=== PATIENT | male | born 1960 ===

== ENCOUNTER 2016-09-28 14:17 | Inpatient (IN) | payer MEDICARE, MEDICAID ==
--- NOTE | 2016-09-28 15:57 | ED PDOC ---
HPI: Male Pain Time Seen by Provider: 09/28/16 15:01 Chief Complaint (Nursing): Male Genitourinary Chief Complaint (Provider): Hematuria History Per: Patient History/Exam Limitations: no limitations Onset/Duration Of Symptoms: Days (8) Current Symptoms Are (Timing): Still Present Additional History Per: Patient Additional Complaint(s): The patient is a 56yo male, presents to the ED for evaluation of hematuria, present for the past 8 days. Of note, patient is on dialysis (MWF) and had his latest dialysis done yesterday. Patient reports associated right sided abdominal pain, present for the past 5 days. He additionally states visiting his substation electrician Dr. Rangel 5 days ago who gave him Bactrim and instructed him to visit the ED if hematuria does not resolve in 3 days. He denies any fever, vomiting, dysuria, chest pain, lightheadedness. Patient offers no additional medical complaints. Past Medical History Reviewed: Historical Data, Nursing Documentation, Vital Signs Vital Signs: Last Vital Signs Temp 97.8 F 09/28/16 14:34 Pulse 78 09/28/16 14:34 Resp 18 09/28/16 14:34 BP 154/80 H 09/28/16 14:34 Pulse Ox 99 09/28/16 14:34 - Medical History PMH: HTN - Family History Family History: States: Unknown Family Hx - Home Medications Home Medications: Ambulatory Orders Medication Instructions Recorded Aspirin [Ecotrin] 81 mg PO DAILY 09/28/16 Cholecalciferol (Vitamin D3) 5,000 unit PO DAILY 09/28/16 [Vitamin D3] Cinacalcet [Sensipar] 30 mg PO DAILY 09/28/16 Febuxostat [Uloric] 40 mg PO DAILY 09/28/16 Folic Acid/Vit B Complex and C 1 tab PO DAILY 09/28/16 [Dee-Valeriano Tablet] Multivitamin/Iron/Folic Acid 1 tab PO DAILY 09/28/16 [Centrum Complete Multivit Tab] Iucjz-8-Oxrg Ethyl Esters 1 GM 1 gm PO BID 09/28/16 [Lovaza] Omeprazole 20 mg PO DAILY 09/28/16 Oxycodone HCl/Acetaminophen 1 tab PO Q4H PRN 09/28/16 [Endocet 5-325 Tablet] Sevelamer Carbonate [Renvela] 800 mg PO TID 09/28/16 Simvastatin [Zocor] 20 mg PO DAILY 09/28/16 Sulfamethoxazole/Trimethoprim 1 tab PO BID 09/28/16 [Bactrim DS Tab] Valsartan [Diovan] 320 mg PO DAILY 09/28/16 traMADol [Ultram] 50 mg PO BID PRN 09/28/16 - Allergies Allergies/Adverse Reactions: Allergies Allergy/AdvReac Type Severity Reaction Status Date / Time No Known Allergies Allergy Verified 10/27/13 11:03 Review of Systems ROS Statement: Except As Marked, All Systems Reviewed And Found Negative Constitutional: Negative for: Fever, Chills Cardiovascular: Negative for: Chest Pain, Light Headedness Gastrointestinal: Positive for: Abdominal Pain. Negative for: Nausea Genitourinary Male: Positive for: Hematuria. Negative for: Dysuria Physical Exam - Reviewed Nursing Documentation Reviewed: Yes Vital Signs Reviewed: Yes - Physical Exam Appears: Positive for: Well, Non-toxic, No Acute Distress Head Exam: Positive for: ATRAUMATIC, NORMAL INSPECTION, NORMOCEPHALIC Skin: Positive for: Normal Color, Warm, DRY Eye Exam: Positive for: Normal appearance Neck: Positive for: Normal, Supple Cardiovascular/Chest: Positive for: Regular Rate, Rhythm Respiratory: Positive for: Normal Breath Sounds. Negative for: Respiratory Distress Gastrointestinal/Abdominal: Positive for: Soft, Tenderness (right sided tenderness). Negative for: Mass, Guarding, Rebound Back: Positive for: Normal Inspection. Negative for: L CVA Tenderness, R CVA Tenderness Extremity: Positive for: Normal ROM, Other (fistula noted in left upper extremity). Negative for: Deformity, Swelling Neurologic/Psych: Positive for: Alert, Oriented. Negative for: Motor/Sensory Deficits - Laboratory Results Result Diagrams: 09/28/16 16:15 09/28/16 16:15 - ECG O2 Sat by Pulse Oximetry: 99 (RA) Pulse Ox Interpretation: Normal Medical Decision Making Medical Decision Making: Time: 1508 Impression: Hematuria, UTI, Pyelonephritis Plan: -- Labs -- CT AP w/o contrast --Reassess Time: 1625 CT AP IMPRESSION: 1. Grossly enlarged cystic kidneys are appreciate implies cystic kidney disease with variable density throughout the kidneys suggest a probable hemorrhagic reported proteinaceous cystic changes occasionally. Lack of contrast limits interpretation. Underlying lesion is not completely excluded. Unremarkable appearing urinary bladder. 2. Occasional appendix cc changes of increases well which are nonspecific but likely represent simple cysts. Lack of contrast limits the interpretation. 3. Potential pulmonary venous congestion/ CHF based on appearance of lung bases as discussed above. Prior bilateral pleural effusions however have resolved. Time: [address] Rangel, patient's substation electrician who advises admission. Case discussed with Dr. Damon who is aware. Case discussed with Dr. Marquez who is aware of admission. Scribe Attestation: Documented by Maite Morgan acting as a scribe for Betty Maynard MD Provider Scribe Attestation: All medical record entries made by the Scribe were at my direction and personally dictated by me. I have reviewed the chart and agree that the record accurately reflects my personal performance of the history, physical exam, medical decision making, and the department course for this patient. I have also personally directed, reviewed, and agree with the discharge instructions and disposition. Disposition - Clinical Impression Clinical Impression: Urinary tract infection, Gross hematuria, Polycystic kidney disease, ESRD (end stage renal disease) - Patient ED Disposition Is Patient to be Admitted: Yes - Disposition Disposition Time: 18:30 Condition: STABLE - Pt Status Changed To: Hospital Disposition Of: Inpatient - Admit Certification Admit to Inpatient:: After my assessment, the patient will require hospitalization for at least two midnights. This is because of the severity of symptoms shown, intensity of services needed, and/or the medical risk in this patient being treated as an outpatient. - POA Present On Arrival: None
--- NOTE | 2016-09-28 16:20 | CT ---
PROCEDURE: CT Abdomen and Pelvis without intravenous contrast HISTORY: R flank pain, hematuria, ESRD COMPARISON: None. TECHNIQUE: Technique. Contrast Dose: 0 cc. Radiation dose: Total exam DLP = 621 mGy-cm. This CT exam was performed using one or more of the following dose reduction techniques: Automated exposure control, adjustment of the mA and/or kV according to patient size, and/or use of iterative reconstruction technique. FINDINGS: LOWER THORAX: Cardiomegaly is again evident, however a prior pleural effusions appear to have resolved. Instead, interlobular septal markings are increased in density and thickness suspicious for potential CHF/pulmonary vascular congestion. . LIVER: Numerous hepatic lucency is again appreciated, some which appear slightly larger in the interval. Lack of contrast limits interpretation. No gross intrahepatic biliary dilatation. GALLBLADDER AND BILE DUCTS: Unremarkable appearing. PANCREAS: Unremarkable. No gross lesion or ductal dilatation. SPLEEN: Unremarkable. ADRENALS: Unremarkable. No mass. KIDNEYS AND URETERS: Grossly enlarged kidneys are again seen due to extensive cystic changes bilaterally with both kidneys appearing somewhat more enlarged than previously shown. The left kidney now extends into the upper left hemipelvis region with both kidneys crowding the local solid and hollow abdominal viscera more so than previously shown. VASCULATURE: Unremarkable. No aortic aneurysm. BOWEL: Unremarkable. No obstruction. No gross mural thickening. APPENDIX: Unremarkable. Normal appendix. PERITONEUM: Unremarkable. No free fluid. No free air. LYMPH NODES: Unremarkable. No enlarged lymph nodes. BLADDER: Unremarkable. REPRODUCTIVE: Unremarkable. BONES: Stable benign hemangioma is appreciate the L4 vertebral body. Question dextroscoliotic lumbar spinal deformity. OTHER FINDINGS: None. IMPRESSION: 1. Grossly enlarged cystic kidneys are appreciate implies cystic kidney disease with variable density throughout the kidneys suggest a probable hemorrhagic reported proteinaceous cystic changes occasionally. Lack of contrast limits interpretation. Underlying lesion is not completely excluded. Unremarkable appearing urinary bladder. 2. Occasional appendix cc changes of increases well which are nonspecific but likely represent simple cysts. Lack of contrast limits the interpretation. 3. Potential pulmonary venous congestion/ CHF based on appearance of lung bases as discussed above. Prior bilateral pleural effusions however have resolved.
[2016-09-28 16:56] LABS: BASO % 0.5 % (0.0-2.0); EOS # 0.2 K/uL (0.0-0.7); EOS % 4.5 % (0.0-4.0); HEMATOCRIT 34.3 % (35.0-51.0); LYMPH # 0.8 K/uL (1.0-4.3); LYMPH % 18.7 % (20.0-40.0); MEAN CELL VOLUME 90.3 fl (80.0-94.0); MEAN CORPUSCULAR HEMOGLOBIN 29.2 pg (27.0-31.0); MEAN CORPUSCULAR HGB CONC 32.4 g/dL (33.0-37.0); MEAN PLATELET VOLUME 8.4 fl (7.2-11.7); MONO # 0.7 K/uL (0.0-0.8); MONO % 15.4 % (0.0-10.0); NEUT # 2.7 K/uL (1.8-7.0); NEUT % 60.9 % (50.0-75.0); NRBC % 0.1 % (0.0-0.0); RED CELL DISTRIBUTION WIDTH 14.7 % (11.5-14.5); WHITE BLOOD COUNT 4.5 K/uL (4.8-10.8)
[2016-09-28 17:02] LABS: RBC URINE 51924 /hpf (0-3); URINE BILIRUBIN NEGATIVE (NEGATIVE); URINE BLOOD MODERATE (NEGATIVE); URINE COLOR RED (YELLOW); URINE GLUCOSE (UA) 50 mg/dL (Normal); URINE KETONE TRACE mg/dL (NEGATIVE); URINE LEUKOCYTE ESTERASE NEG Leu/uL (Negative); URINE PROTEIN 100 mg/dL (NEGATIVE); URINE UROBILINOGEN 0.2-1.0 mg/dL (0.2-1.0)
[2016-09-28 17:02] LABS: ALB/GLOB RATIO 1.2 (1.0-2.1); BILIRUBIN,TOTAL 0.6 mg/dl (0.2-1.3); CALCIUM 9.6 mg/dL (8.4-10.2); POTASSIUM 5.5 MMOL/L (3.6-5.0); TOTAL PROTEIN 7.9 G/DL (6.3-8.2)
[2016-09-28 17:04] LABS: WBC URINE 5 /hpf (0-5)
[2016-09-28 17:07] LABS: VENOUS BLOOD GAS BASE EXCESS 7.5 mmol/L (0.0-2.0); VENOUS BLOOD GAS PCO2 50 mmHg (40-60); VENOUS BLOOD PH 7.43 (7.32-7.43)
[2016-09-28 17:13] LABS: PARTIAL THROMBOPLASTIN TIME 36.5 Seconds (25.6-37.1)
[2016-09-28] MEDS ORDERED: Sod Polystyrene Sulf 15 gm/60 ml Oral Susp PO STA (17:26)
[2016-09-28] MEDS ORDERED: Sod Polystyrene Sulf 15 gm/60 ml Oral Susp ONE (18:00)
[2016-09-28] MEDS ORDERED: Insulin Regular 100 units/ml IV STA (18:15)
[2016-09-28] MEDS ORDERED: Albuterol 0.083% Inhal Sol (2.5 mg/3 mL) UD INH STA (18:15)
[2016-09-28] MEDS ORDERED: Dextrose 50% SYRINGE Inj (50 ml) IVP STA (18:16)
[2016-09-28] MEDS ORDERED: cefTRIAXone (Rocephin) 1 gm Inj ONE (18:40)
[2016-09-28] MEDS ORDERED: Insulin Regular 100 units/ml ONE (18:41)
[2016-09-28] MEDS ORDERED: Albuterol-Ipratrop 3 mg / 0.5 (3 ml) UD ONE (18:41)
[2016-09-28] MEDS ORDERED: Dextrose 50% SYRINGE Inj (50 ml) ONE (18:42)
[2016-09-28] MEDS ORDERED: Oxycodone/Acetaminophen 5/325 mg Tab PO PRN (22:58)
[2016-09-29] MEDS ORDERED: Multivitamin With Minerals Tab PO SCH (09:00)
[2016-09-29 10:46] LABS: RBC URINE 4962 /hpf (0-3); URINE BILIRUBIN NEGATIVE (NEGATIVE); URINE BLOOD LARGE (NEGATIVE); URINE COLOR RED (YELLOW); URINE GLUCOSE (UA) NEG (Normal); URINE KETONE NEGATIVE (NEGATIVE); URINE LEUKOCYTE ESTERASE NEG Leu/uL (Negative); URINE PROTEIN 100 mg/dL (NEGATIVE); URINE UROBILINOGEN 0.2-1.0 mg/dL (0.2-1.0); WBC URINE 521 /hpf (0-5)
[2016-09-29 10:56] LABS: WBC CLUMPS RARE /hpf
[2016-09-29 10:57] LABS: URINE BACTERIA RARE (<OCC)
[2016-09-29] MEDS: Tmp-Smz 800 mg-160 mg DS Tab PO SCH ×2 (10:58→18:32)
--- NOTE | 2016-09-29 13:05 | CP.PCM.CON ---
History of Present Illness - History of Present Illness History of Present Illness: 56yo male, presents to the ED for evaluation of hematuria, present for the past 8 days. Of note, patient is on dialysis (MWF) and had his latest dialysis done yesterday. Patient reports associated right sided abdominal pain, present for the past 5 days. He additionally states visiting his washhouse hand Dr. Rangel 5 days ago who gave him Bactrim and instructed him to visit the ED if hematuria does not resolve in 3 days. He denies any fever, vomiting, dysuria, chest pain, lightheadedness. Patient offers no additional medical complaints. - Medical History PMH: HTN Review of Systems - Constitutional Constitutional: As Per HPI, Fatigue - EENT Eyes: absent: As Per HPI, Blind Spots, Blurred Vision, Change in Vision, Decreased Night Vision, Diplopia, Discharge, Dry Eye, Exophthalmos, Floaters, Irritation, Itchy Eyes, Loss of Peripheral Vision, Pain, Photophobia, Requires Corrective Lenses, Sees Flashes, Spots in Vision, Tunnel Vision, Other Visual Disturbances, Loss of Vision, Other Ears: absent: As Per HPI, Decreased Hearing, Ear Discharge, Ear Pain, Tinnitus, Abnormal Hearing, Disequilibrium, Dizziness, Other Nose/Mouth/Throat: absent: As Per HPI, Epistaxis, Nasal Congestion, Nasal Discharge, Nasal Obstruction, Nasal Trauma, Nose Pain, Post Nasal Drip, Sinus Pain, Sinus Pressure, Bleeding Gums, Change in Voice, Dental Pain, Dry Mouth, Dysphagia, Halitosis, Hoarsness, Lip Swelling, Mouth Lesions, Mouth Pain, Odynophagia, Sore Throat, Throat Swelling, Tongue Swelling, Facial Pain, Neck Pain, Neck Mass, Other - Cardiovascular Cardiovascular: absent: As Per HPI, Acrocyanosis, Chest Pain, Chest Pain at Rest , Chest Pain with Activity, Claudication, Diaphoresis, Dyspnea, Dyspnea on Exertion, Edema, Irregular Heart Rhythm, Pain Radiating to Arm/Neck/Jaw, Leg Edema, Leg Ulcers, Lightheadedness, Orthopnea, Palpitations, Paroxysmal Nocturnal Dyspnea, Pedal Edema, Radiating Pain, Rapid Heart Rate, Slow Heart Rate, Syncope, Other - Respiratory Respiratory: absent: As Per HPI, Cough, Dyspnea, Hemoptysis, Dyspnea on Exertion , Wheezing, Snoring, Stridor, Pain on Inspiration, Chest Congestion, Excessive Mucous Production, Change in Mucous Color, Pain with Coughing, Other - Gastrointestinal Gastrointestinal: absent: As Per HPI, Abdominal Pain, Belching, Bloating, Change in Bowel Habits, Change in Stool Character, Coffee Ground Emesis, Constipation, Cramping, Diarrhea, Dyspepsia, Dysphagia, Early Satiety, Excessive Flatus, Fecal Incontinence, Heartburn, Hematemesis, Hematochezia, Loose Stools, Melena, Nausea, Odynophagia, Temesmus, Vomiting, Other - Genitourinary Genitourinary: As Per HPI - Musculoskeletal Musculoskeletal: absent: As Per HPI, Abnormal Gait, Arthralgias, Atrophy, Back Pain, Deformity, Joint Swelling, Limited Range of Motion, Loss of Height, Muscle Cramps, Muscle Weakness, Myalgias, Neck Pain, Numbness, Radiating Pain into Limb, Stiffness, Tingling, Other - Integumentary Integumentary: absent: As Per HPI, Acne, Alopecia, Bleeding Lesions, Change in Hair, Change in Nails, Change in Pigmentation, Changing Lesions, Dry Skin, Erythema, Furuncle, Hirsutism, Lesions, New Lesions, Non-Healing Lesions, Photosensitivity, Pruritus, Rash, Skin Pain, Skin Ulcer, Sores, Striae, Swelling , Unusual Bruising, Wounds, Jaundice, Other - Neurological Neurological: absent: As Per HPI, Abnormal Gait, Abnormal Hearing, Abnormal Movements, Abnormal Speech, Behavioral Changes, Burning Sensations, Confusion, Convulsions, Disequilibrium, Dizziness, Numbness, Focal Weakness, Frequent Falls , Headaches, Lack of Coordination, Loss of Vision, Memory Loss, Paresthesias, Radicular Pain, Restless Legs, Sensory Deficit, Syncope, Tingling, Tremor, Vertigo, Weakness, Other Visual Disturbances, Other - Psychiatric Psychiatric: absent: As Per HPI, Abnormal Sleep Pattern, Anhedonia, Anxiety, Auditory Hallucinations, Behavioral Changes, Change in Appetite, Change in Libido, Confusion, Depression, Difficulty Concentrating, Hallucinations, Homicidal Ideation, Hopelessness, Irritability, Memory Loss, Mood Swings, Panic Attacks, Paranoia, Suicidal Ideation, Visual Hallucinations, Tactile Hallucinations, Other - Endocrine Endocrine: absent: As Per HPI, Change in Body Appearance, Change in Libido, Cold Intolorance, Deepening of Voice, Excessive Sweating, Fatigue, Flushing, Heat Intolorance, Increase in Ring/Shoe/Hat Size, Palpitations, Polydipsia, Polyphagia, Polyuria, Other - Hematologic/Lymphatic Hematologic: absent: As Per HPI, Easy Bleeding, Easy Bruising, Lymphadenopathy, Other Past Patient History - Past Medical History & Family History Past Medical History?: Yes - Past Social History Smoking Status: Never Smoked - CARDIAC Hx Cardiac Disorders: Yes Hx Hypertension: Yes Other/Comment: With external defibrilator - PULMONARY Hx Respiratory Disorders: No - NEUROLOGICAL Hx Neurological Disorder: No - HEENT Hx HEENT Problems: No - RENAL Hx Chronic Kidney Disease: Yes Hx Dialysis: Yes Hx Renal (Kidney) Cancer: Yes - ENDOCRINE/METABOLIC Hx Endocrine Disorders: No - HEMATOLOGICAL/ONCOLOGICAL Hx Blood Disorders: No - INTEGUMENTARY Hx Dermatological Problems: No - MUSCULOSKELETAL/RHEUMATOLOGICAL Hx Musculoskeletal Disorders: No Hx Falls: No - GASTROINTESTINAL Hx Gastrointestinal Disorders: No - GENITOURINARY/GYNECOLOGICAL Hx Genitourinary Disorders: No - PSYCHIATRIC Hx Psychophysiologic Disorder: No Hx Substance Use: No - SURGICAL HISTORY Hx Surgeries: Yes Other/Comment: External defib sx, left upper am fistula insertion - ANESTHESIA Hx Anesthesia: Yes Hx Anesthesia Reactions: No Hx Malignant Hyperthermia: No Meds Allergies/Adverse Reactions: Allergies Allergy/AdvReac Type Severity Reaction Status Date / Time No Known Allergies Allergy Verified 10/27/13 11:03 - Medications Medications: Current Medications Acetaminophen (Tylenol 325mg Tab) 650 mg PO Q4 PRN PRN Reason: Fever >100.4 F Aspirin (Ecotrin) 81 mg PO DAILY [facility] Atorvastatin Calcium (Lipitor) 10 mg PO HS [facility] Cholecalciferol (Vitamin D) 5,000 iu PO DAILY [facility] Cinacalcet (Sensipar) 30 mg PO DAILY [facility] Home Med (Febuxostat [Uloric]) 40 mg PO DAILY [facility] Ceftriaxone Sodium 1 gm/ (Sodium Chloride) 100 mls @ 100 mls/hr IVPB DAILY [facility] Multivitamins/Minerals (Therapeutic-M Tab) 1 tab PO DAILY [facility] Hyyyu-6-Edbr Ethyl Esters (Lovaza) 1 gm PO BID [facility] Oxycodone/Acetaminophen (Percocet 5/325 Mg Tab) 1 tab PO Q4H PRN PRN Reason: Pain, severe (8-10) Stop: 10/01/16 22:59 Pantoprazole Sodium (Protonix Ec Tab) 40 mg PO DAILY [facility] Sevelamer HCl (Renagel) 800 mg PO TID [facility] Tramadol HCl (Ultram) 50 mg PO Q4 PRN PRN Reason: Pain, moderate (4-7) Trimethoprim/Sulfamethoxazole (Bactrim Ds Tab) 1 tab PO BID [facility] Valsartan (Diovan) 320 mg PO DAILY [facility] Vitamin B Complex/Vit C/Folic Acid (Nephro-Valeriano) 1 tab PO DAILY [facility] Physical Exam - Constitutional Appears: Non-toxic, Younger Than Stated Age, Chronically Ill - Head Exam Head Exam: NORMOCEPHALIC - Eye Exam Eye Exam: PERRL. absent: Nystagmus, Scleral icterus - ENT Exam ENT Exam: Mucous Membranes Dry - Neck Exam Neck exam: Negative for: Lymphadenopathy, Thyromegaly - Respiratory Exam Respiratory Exam: Decreased Breath Sounds, Clear to Auscultation Bilateral - Cardiovascular Exam Cardiovascular Exam: REGULAR RHYTHM, +S1, +S2 - GI/Abdominal Exam GI & Abdominal Exam: Diminished Bowel Sounds, Soft. absent: Tenderness - Rectal Exam Rectal Exam: Deferred - Exam Exam: NORMAL INSPECTION - Extremities Exam Extremities exam: Negative for: pedal edema - Back Exam Back exam: absent: CVA tenderness (L), CVA tenderness (R), paraspinal tenderness - Neurological Exam Neurological exam: Alert, CN II-XII Intact, Oriented x3, Reflexes Normal - Psychiatric Exam Psychiatric exam: Normal Mood - Skin Skin Exam: Dry Results - Vital Signs Recent Vital Signs: Last Vital Signs Temp 97.7 F 09/29/16 07:31 Pulse 75 09/29/16 07:31 Resp 20 09/29/16 07:31 BP 150/85 09/29/16 07:31 Pulse Ox 98 09/29/16 07:31 - Labs Result Diagrams: 09/28/16 16:15 09/28/16 16:15 Labs: Laboratory Results - last 24 hr 09/28/16 09/29/16 09/29/16 21:48 05:57 06:15 POC Glucose (mg/dL) 104 80 Urine Color Red Urine Clarity Turbid Urine pH 8.0 Ur Specific [place] 1.009 Urine Protein 100 Urine Glucose (UA) Neg Urine Ketones Negative Urine Blood Large Urine Nitrate Negative Urine Bilirubin Negative Urine Urobilinogen 0.2-1.0 Ur Leukocyte Esterase Neg Urine RBC (Auto) 4962 H Urine WBC Clumps (Auto) Rare H Urine Microscopic WBC 521 H Urine Bacteria Rare Assessment & Plan (1) Chest wall pain Status: Acute (2) Hematuria Status: Acute - Assessment and Plan (Free Text) Assessment: check cultures rx uti r/o sepsis esrd
[2016-09-29] MEDS: Omega-3-Acid Ethyl Esters 1 GM Cap PO SCH ×2 (16:57→18:33)
[2016-09-29] MEDS: Pantoprazole 40 mg EC Tab PO SCH (17:02)
--- NOTE | 2016-09-29 23:35 | CP.PCM.CON ---
History of Present Illness - History of Present Illness History of Present Illness: REASONS OF CONSULT : ESRD ON HD M W F 2/2 APCKD HEMATURIA ..UTI .. BLEEDING IN A CYST ANEMIA OF CKD .. H/H REMAIN STABLE SEEN ON RENAL CONSULT .. SEEN ON HD PT IS WELL KNOWN TO ME WITH APCKD ON HD FOR THE LAST 7 YEARS .. WITH COMPLICATIONS OF INTERMITTANT UTI AND BLEEDING OVER THE YEARS I GAVE HIM LEVAQUIN 250 MG POQD FOR 10 DAYS WITH NO IMPROVEMENT AFTER 5 DAYS .. WAS NERVOUS .. I CHANGED THE ANTIBIOTICS TO BACTRIM PO BIB 3 DAYS AGO PT DID NOT IMPROVE .. HE C/O TO HAVE R LOIN PAIN AND NELLY HEMATURIA .. CAME TO THE ER Chief Complaint (Nursing): Male Genitourinary Chief Complaint (Provider): Hematuria History Per: Patient History/Exam Limitations: no limitations Onset/Duration Of Symptoms: Days (8) Current Symptoms Are (Timing): Still Present Additional History Per: Patient Additional Complaint(s): The patient is a 56yo male, presents to the ED for evaluation of hematuria, present for the past 8 days. Of note, patient is on dialysis (MWF) and had his latest dialysis done yesterday. Patient reports associated right sided abdominal pain, present for the past 5 days. He additionally states visiting his sheet metal technician Dr. Rangel 5 days ago who gave him Bactrim and instructed him to visit the ED if hematuria does not resolve in 3 days. He denies any fever, vomiting, dysuria, chest pain, lightheadedness. Patient offers no additional medical complaints. Past Medical History Past Patient History - Past Medical History & Family History Past Medical History?: Yes - Past Social History Smoking Status: Never Smoked - CARDIAC Hx Cardiac Disorders: Yes Hx Hypertension: Yes Other/Comment: With external defibrilator - PULMONARY Hx Respiratory Disorders: No - NEUROLOGICAL Hx Neurological Disorder: No - HEENT Hx HEENT Problems: No - RENAL Hx Chronic Kidney Disease: Yes Hx Dialysis: Yes Hx Renal (Kidney) Cancer: Yes - ENDOCRINE/METABOLIC Hx Endocrine Disorders: No - HEMATOLOGICAL/ONCOLOGICAL Hx Blood Disorders: No - INTEGUMENTARY Hx Dermatological Problems: No - MUSCULOSKELETAL/RHEUMATOLOGICAL Hx Musculoskeletal Disorders: No Hx Falls: No - GASTROINTESTINAL Hx Gastrointestinal Disorders: No - GENITOURINARY/GYNECOLOGICAL Hx Genitourinary Disorders: No - PSYCHIATRIC Hx Psychophysiologic Disorder: No Hx Substance Use: No - SURGICAL HISTORY Hx Surgeries: Yes Other/Comment: External defib sx, left upper am fistula insertion - ANESTHESIA Hx Anesthesia: Yes Hx Anesthesia Reactions: No Hx Malignant Hyperthermia: No Meds Allergies/Adverse Reactions: Allergies Allergy/AdvReac Type Severity Reaction Status Date / Time No Known Allergies Allergy Verified 10/27/13 11:03 - Medications Medications: Current Medications Acetaminophen (Tylenol 325mg Tab) 650 mg PO Q4 PRN PRN Reason: Fever >100.4 F Aspirin (Ecotrin) 81 mg PO DAILY [facility] Last Admin: 09/29/16 10:58 Dose: 81 mg Atorvastatin Calcium (Lipitor) 10 mg PO HS [facility] Last Admin: 09/29/16 22:18 Dose: 10 mg Cholecalciferol (Vitamin D) 5,000 iu PO DAILY [facility] Cinacalcet (Sensipar) 30 mg PO DAILY [facility] Last Admin: 09/29/16 16:58 Dose: 30 mg Home Med (Febuxostat [Uloric]) 40 mg PO DAILY [facility] Last Admin: 09/29/16 16:59 Dose: 40 mg Ceftriaxone Sodium 1 gm/ (Sodium Chloride) 100 mls @ 100 mls/hr IVPB DAILY [facility] Last Admin: 09/29/16 17:06 Dose: 100 mls/hr Multivitamins/Minerals (Therapeutic-M Tab) 1 tab PO DAILY [facility] Wflps-7-Fqta Ethyl Esters (Lovaza) 1 gm PO BID [facility] Last Admin: 09/29/16 18:33 Dose: 1 gm Oxycodone/Acetaminophen (Percocet 5/325 Mg Tab) 1 tab PO Q4H PRN PRN Reason: Pain, severe (8-10) Stop: 10/01/16 22:59 Pantoprazole Sodium (Protonix Ec Tab) 40 mg PO DAILY [facility] Last Admin: 09/29/16 17:02 Dose: 40 mg Sevelamer HCl (Renagel) 800 mg PO TID [facility] Last Admin: 09/29/16 18:54 Dose: Not Given Tramadol HCl (Ultram) 50 mg PO Q4 PRN PRN Reason: Pain, moderate (4-7) Trimethoprim/Sulfamethoxazole (Bactrim Ds Tab) 1 tab PO BID [facility] Last Admin: 09/29/16 18:32 Dose: 1 tab Valsartan (Diovan) 320 mg PO DAILY [facility] Last Admin: 09/29/16 18:33 Dose: Not Given Vitamin B Complex/Vit C/Folic Acid (Nephro-Valeriano) 1 tab PO DAILY [facility] Results - Vital Signs Recent Vital Signs: Last Vital Signs Temp 98.4 F 09/29/16 15:56 Pulse 78 09/29/16 15:56 Resp 17 09/29/16 15:56 BP 148/82 09/29/16 15:56 Pulse Ox 99 09/29/16 15:56 - Labs Result Diagrams: 09/28/16 16:15 09/28/16 16:15 Labs: Laboratory Results - last 24 hr 09/29/16 09/29/16 09/29/16 05:57 06:15 10:55 POC Glucose (mg/dL) 80 Urine Color Red Urine Clarity Turbid Urine pH 8.0 Ur Specific [place] 1.009 Urine Protein 100 Urine Glucose (UA) Neg Urine Ketones Negative Urine Blood Large Urine Nitrate Negative Urine Bilirubin Negative Urine Urobilinogen 0.2-1.0 Ur Leukocyte Esterase Neg Urine RBC (Auto) 4962 H Urine WBC Clumps (Auto) Rare H Urine Microscopic WBC 521 H Urine Bacteria Rare Hep Bs Antigen Negative Hep Bs Antibody Hepatitis C Antibody Negative 09/29/16 10:55 POC Glucose (mg/dL) Urine Color Urine Clarity Urine pH Ur Specific [place] Urine Protein Urine Glucose (UA) Urine Ketones Urine Blood Urine Nitrate Urine Bilirubin Urine Urobilinogen Ur Leukocyte Esterase Urine RBC (Auto) Urine WBC Clumps (Auto) Urine Microscopic WBC Urine Bacteria Hep Bs Antigen Hep Bs Antibody Positive Hepatitis C Antibody Assessment & Plan - Date & Time Date: 09/29/16 Time: 19:00
[2016-09-30] MEDS: Omega-3-Acid Ethyl Esters 1 GM Cap PO SCH (09:35)
[2016-09-30] MEDS: Multivitamin Vitamin B Complex (Nephro-Vite) Tab PO SCH ×2 (09:35→09:37)
[2016-09-30] MEDS: Pantoprazole 40 mg EC Tab PO SCH (09:35)
[2016-09-30] MEDS: Tmp-Smz 800 mg-160 mg DS Tab PO SCH (09:35)
[2016-09-30 16:05] VITALS: BP 121/72; PULSE 64; RESP 16; TEMP 97.8; O2SAT 99
== END 2016-09-30 16:48 | disposition home or self-care (01) | DRG 689 ==
LOC: H.ER 14:17 → H.ERHOLD 18:30 → H.MEDSURG1 20:48
PROVIDERS: ADMIT Family Medicine; ATTEND Family Medicine
PROC: 5A1D00Z (ICD-10-PCS; principal; 2016-09-29)
DX: N39.0 Urinary tract infection, site not specified (principal); N18.6 End stage renal disease; I12.0 Hypertensive chronic kidney disease with stage 5 chronic kidney disease or end stage renal disease; Q61.2 Polycystic kidney, adult type; D63.1 Anemia in chronic kidney disease; Z99.2 Dependence on renal dialysis; R07.89 Other chest pain; R31.0 Gross hematuria

== ENCOUNTER 2017-09-05 19:34 | Inpatient (IN) | payer MEDICARE, MEDICAID ==
--- NOTE | 2017-09-05 20:50 | ED PDOC ---
HPI: Abdomen Time Seen by Provider: 09/05/17 19:49 Chief Complaint (Nursing): Abdominal Pain Chief Complaint (Provider): Abdominal Pain History Per: Patient History/Exam Limitations: no limitations Onset/Duration Of Symptoms: Other (x2 weeks) Current Symptoms Are (Timing): Still Present Associated Symptoms: Urinary Symptoms (hematuria) Additional Complaint(s): 57 year old male presents to the ED complaining of ongoing and worsening abdominal pain and dysuria with onset of 2 weeks associated with hematuria and frequency. Patient has a history of UTI and was started on Lovenox 2 weeks ago with no improvement. He is also receiving antibiotics via dialysis with no improvements. Patient reports he had a subjective fever and chills yesterday but none today along with generalized weakness. Denies nausea, vomiting, diarrhea, and constipation. PMD: Dr. Marquez Store Product Demonstrator: Dr. Rangel Past Medical History Reviewed: Historical Data, Nursing Documentation, Vital Signs Vital Signs: Last Vital Signs Temp 98.3 F 09/06/17 17:00 Pulse 59 L 09/06/17 17:00 Resp 18 09/06/17 17:00 BP 120/69 09/06/17 17:00 Pulse Ox 99 09/06/17 18:33 - Medical History PMH: HTN, Chronic Kidney Disease Other PMH: UTI - Surgical History Surgical History: Pacemaker Other surgeries: Left upper extremity AV shunt - Family History Family History: States: Hypertension - Social History Current smoker - smoking cessation education provided: No - Home Medications Home Medications: Ambulatory Orders Medication Instructions Recorded Aspirin [Ecotrin] 81 mg PO DAILY 09/28/16 Cholecalciferol (Vitamin D3) 5,000 unit PO DAILY 09/28/16 [Vitamin D3] Febuxostat [Uloric] 40 mg PO DAILY 09/28/16 Folic Acid/Vit B Complex and C 1 tab PO DAILY 09/28/16 [Dee-Valeriano Tablet] Multivitamin/Iron/Folic Acid 1 tab PO DAILY 09/28/16 [Centrum Complete Multivit Tab] Irugj-4-Ihzb Ethyl Esters 1 GM 1 gm PO BID 09/28/16 [Lovaza] Sevelamer Carbonate [Renvela] 800 mg PO TID 09/28/16 Simvastatin [Zocor] 20 mg PO DAILY 09/28/16 Valsartan [Diovan] 320 mg PO DAILY 09/28/16 Famotidine [Pepcid] 20 mg PO DAILY 09/05/17 Metoprolol Tartrate [Lopressor] 25 mg PO DAILY 09/05/17 - Allergies Allergies/Adverse Reactions: Allergies Allergy/AdvReac Type Severity Reaction Status Date / Time No Known Allergies Allergy Verified 09/05/17 19:37 Review of Systems ROS Statement: Except As Marked, All Systems Reviewed And Found Negative (as per HPI) Constitutional: Positive for: Weakness. Negative for: Fever, Chills Gastrointestinal: Positive for: Abdominal Pain. Negative for: Nausea, Vomiting , Diarrhea, Constipation Genitourinary Male: Positive for: Dysuria, Hematuria Physical Exam - Reviewed Nursing Documentation Reviewed: Yes Vital Signs Reviewed: Yes - Physical Exam Appears: Positive for: Non-toxic, No Acute Distress (mild painful distress) Head Exam: Positive for: ATRAUMATIC, NORMOCEPHALIC Skin: Positive for: Warm, Dry Eye Exam: Positive for: EOMI, PERRL ENT: Negative for: Pharyngeal Erythema, Tonsillar Exudate Neck: Positive for: Painless ROM, Supple Cardiovascular/Chest: Positive for: Regular Rate, Rhythm, Chest Non Tender. Negative for: Murmur Respiratory: Positive for: Normal Breath Sounds. Negative for: Wheezing Gastrointestinal/Abdominal: Positive for: Tenderness (suprapubic tenderness to plapation). Negative for: Distended, Guarding, Rebound Male Genital Exam: Positive for: normal genitalia, normal prostate Back: Positive for: Normal Inspection. Negative for: L CVA Tenderness, R CVA Tenderness Extremity: Positive for: Other (LEFT upper extremity: AV shunt with palpable thrill) Lymphatic: Negative for: Adenopathy Neurologic/Psych: Positive for: Alert. Negative for: Motor/Sensory Deficits - Laboratory Results Result Diagrams: 09/05/17 20:40 09/05/17 20:40 - ECG O2 Sat by Pulse Oximetry: 99 (RA) Pulse Ox Interpretation: Normal Medical Decision Making Medical Decision Making: Initial Impression: UTI, failed outpatient treatment Initial Plan: ECG CMP Lact acid Lipase Magnesium Phosphorous ED urine dipstick CBC Chest x-ray Blood culture Urine culture Urinalysis Patient will need hospitalization for IV antibiotics. Pending ED workup DEJON Marquez PMD EXAM: CT Abdomen and Pelvis Without Intravenous Contrast CLINICAL HISTORY: The patient is a 57 years male; Pain; Abdominal pain; Localized; Other: Pelvic pain; Prior surgery; Surgery date: 6+ months; Surgery type: Internal defib. ; Patient HX: Chronic kidney disease. Dialysis; Additional info: Pelvic pain and h/o kidney disease 09/05/2017 9:03 PM TECHNIQUE: Axial computed tomography images of the abdomen and pelvis without intravenous contrast. All CT scans at this facility use at least one of these dose optimization techniques: automated exposure control; mA and/or kV adjustment per patient size (includes targeted exams where dose is matched to clinical indication); or iterative reconstruction. Coronal and sagittal reformatted images were created and reviewed. COMPARISON: CT - ABD PELVIS W/O PO OR IV CONT 2016-09-28 15:41 FINDINGS: Lung bases: Left chest wall ICD/pacer. No consolidation. ABDOMEN: Liver: Unremarkable. Gallbladder and bile ducts: Unremarkable. No calcified stones. No ductal dilation. Pancreas: Unremarkable. No ductal dilation. Spleen: Unremarkable. No splenomegaly. Adrenals: Unremarkable. No mass. Kidneys and ureters: Findings indicative of polycystic kidney disease.There are renal hypodensities and hyperdense foci that cannot be accurately characterized on the current examination. Scattered calcifications in both kidneys. No hydronephrosis. Stomach and bowel: There are hypodensities in the liver that cannot be accurately characterized on this single phase current examination, could be related to polycystic diseaseStool is present throughout the colon and rectum, correlate with history of constipation. PELVIS: Appendix: No findings to suggest acute appendicitis. Bladder: Partially contracted. Reproductive: Enlarged prostate ABDOMEN and PELVIS: Intraperitoneal space: Unremarkable. No free air. No drainable fluid collection. Bones/joints: Spondylosis. No acute fracture. No dislocation. Soft tissues: Unremarkable. Vasculature: Vascular calcifications. No abdominal aortic aneurysm. Lymph nodes: Unremarkable. No enlarged lymph nodes. IMPRESSION: Findings indicative of polycystic kidney disease.There are renal hypodensities and hyperdense foci that cannot be accurately characterized on the current examination. Scattered calcifications in both kidneys. No hydronephrosis. No imaging features to suggest acute appendicitis at this time. Stool is present throughout the colon and rectum, correlate with history of constipation. Thank you for allowing us to participate in the care of your patient. Dictated and Authenticated by: Jaida Ramirez MD 09/05/2017 9:50 PM Eastern Time ([place] & [place]) Pt has minimal urine output and no sample provided to check. Pt has intractable abdominal pain of unknown cause. Will hospitalize for further evaluation and management. DW Dr Marquez PMSusanna and Dr Rangel Store Product Demonstrator. Scribe Attestation: Documented by Yo Hitchcock acting as a scribe for Gema Alvarez MD. Provider Scribe Attestation: All medical record entries made by the Scribe were at my direction and personally dictated by me. I have reviewed the chart and agree that the record accurately reflects my personal performance of the history, physical exam, medical decision making, and the department course for this patient. I have also personally directed, reviewed, and agree with the discharge instructions and disposition. Disposition - Clinical Impression Clinical Impression: Polycystic kidney disease, ESRD (end stage renal disease), Intractable abdominal pain Counseled Patient/Family Regarding: Studies Performed, Diagnosis - Disposition Disposition Time: 21:00 Condition: FAIR - Pt Status Changed To: Hospital Disposition Of: Inpatient - Admit Certification Admit to Inpatient:: After my assessment, the patient will require hospitalization for at least two midnights. This is because of the severity of symptoms shown, intensity of services needed, and/or the medical risk in this patient being treated as an outpatient. - POA Present On Arrival: None
[2017-09-05 20:54] LABS: BASO % 0.4 % (0.0-2.0); EOS # 0.3 K/uL (0.0-0.7); EOS % 5.3 % (0.0-4.0); HEMOGLOBIN 13.2 g/dL (12.0-18.0); LYMPH # 1.1 K/uL (1.0-4.3); LYMPH % 18.3 % (20.0-40.0); MEAN CELL VOLUME 86.8 fl (80.0-94.0); MEAN CORPUSCULAR HEMOGLOBIN 28.4 pg (27.0-31.0); MEAN CORPUSCULAR HGB CONC 32.8 g/dL (33.0-37.0); MEAN PLATELET VOLUME 8.6 fl (7.2-11.7); MONO % 15.7 % (0.0-10.0); NEUT # 3.8 K/uL (1.8-7.0); NEUT % 60.3 % (50.0-75.0); RBC 4.63 Mil/uL (4.40-5.90); RED CELL DISTRIBUTION WIDTH 15.5 % (11.5-14.5); WHITE BLOOD COUNT 6.2 K/uL (4.8-10.8)
[2017-09-05 21:02] LABS: ALB/GLOB RATIO 0.9 (1.0-2.1); ALBUMIN 3.8 g/dL (3.5-5.0); CALCIUM 8.9 mg/dL (8.4-10.2)
--- NOTE | 2017-09-05 23:48 | CP.PCM.CON ---
History of Present Illness - History of Present Illness History of Present Illness: REASONS FOR CONSULT : ESRD ON HD M W D .. HAD HIS HD TODAY APKD HEMATURIA .. DYSURIA .. LOWER ABDO PAIN PT IS WELL KNPWN TO ME .. GETS UTI AND HEMATURIA EVERY NOW AND THEN WHICH I TREAT AN OUT PT EMPERICALLY WITH PO ANTIBIOTICS WAS SEEN IN MY OFFICE APPROXIMATELY 10 DAYS AGO WITH SEVERE DYSURIA HEMATURIA AND LOWER S=ABDO PAIN .. I GAVE HIM LEVAQIUN 250 PO QD X 14 DAYS PT DID NOT GET BETTER THIS MORNING I SAW PT ON HD .. WAS STILL C/O SEVERE DYSURIA ,LOWER ABDO PAIN AND HEMATURIA ,,HE WAS SO FRUSTRATED FROM THE SEVERETY AND CHRONICITY OF HIS SYMPTOMS THAT HE VERBALIZED TO ME THAT HE WOULD GO TO THE HOSPITAL CASE D/W ER ATTENDING AT LENGTH Time Seen by Provider: 09/05/17 19:49 Chief Complaint (Nursing): Abdominal Pain Chief Complaint (Provider): Abdominal Pain History Per: Patient History/Exam Limitations: no limitations Onset/Duration Of Symptoms: Other (x2 weeks) Current Symptoms Are (Timing): Still Present Associated Symptoms: Urinary Symptoms (hematuria) Additional Complaint(s): 57 year old male presents to the ED complaining of ongoing and worsening abdominal pain and dysuria with onset of 2 weeks associated with hematuria and frequency. Patient has a history of UTI and was started on Lovenox 2 weeks ago with no improvement. He is also receiving antibiotics via dialysis with no improvements. Patient reports he had a subjective fever and chills yesterday but none today along with generalized weakness. Denies nausea, vomiting, diarrhea, and constipation. PMD: Dr. Jacobs Amusement Machine Mechanic: Dr. Rangel Past Medical History Reviewed: Historical Data, Nursing Documentation, Vital Signs Vital Signs: Last Vital Signs Temp 98.6 F 09/05/17 19:37 Pulse 70 09/05/17 19:37 Resp 18 09/05/17 19:37 BP 133/69 09/05/17 19:37 Pulse Ox 99 09/05/17 20:58 - Medical History PMH: HTN, Chronic Kidney Disease Other PMH: UTI - Surgical History Surgical History: Pacemaker Other surgeries: Left upper extremity AV shunt - Family History Family History: States: Hypertension - Social History Current smoker - smoking cessation education provided: No - Home Medications Home Medications: Ambulatory Orders Medication Instructions Recorded Aspirin [Ecotrin] 81 mg PO DAILY 09/28/16 Cholecalciferol (Vitamin D3) 5,000 unit PO DAILY 09/28/16 [Vitamin D3] Cinacalcet [Sensipar] 30 mg PO DAILY 09/28/16 Febuxostat [Uloric] 40 mg PO DAILY 09/28/16 Folic Acid/Vit B Complex and C 1 tab PO DAILY 09/28/16 [Dee-Valeriano Tablet] Multivitamin/Iron/Folic Acid 1 tab PO DAILY 09/28/16 [Centrum Complete Multivit Tab] Awaxq-3-Vsag Ethyl Esters 1 GM 1 gm PO BID 09/28/16 [Lovaza] Omeprazole 20 mg PO DAILY 09/28/16 Oxycodone HCl/Acetaminophen 1 tab PO Q4H PRN 09/28/16 [Endocet 5-325 Tablet] Sevelamer Carbonate [Renvela] 800 mg PO TID 09/28/16 Simvastatin [Zocor] 20 mg PO DAILY 09/28/16 Sulfamethoxazole/Trimethoprim 1 tab PO BID 09/28/16 [Bactrim DS Tab] Valsartan [Diovan] 320 mg PO DAILY 09/28/16 traMADol [Ultram] 50 mg PO BID PRN 09/28/16 Past Patient History - Past Medical History & Family History Past Medical History?: Yes - Past Social History Smoking Status: Never Smoked - CARDIAC Hx Cardiac Disorders: Yes (HTN, pacemaker) - PULMONARY Hx Respiratory Disorders: No - NEUROLOGICAL Hx Neurological Disorder: No - HEENT Hx HEENT Problems: No - RENAL Hx Chronic Kidney Disease: Yes - ENDOCRINE/METABOLIC Hx Endocrine Disorders: No - HEMATOLOGICAL/ONCOLOGICAL Hx Blood Disorders: No - INTEGUMENTARY Hx Dermatological Problems: No - MUSCULOSKELETAL/RHEUMATOLOGICAL Hx Musculoskeletal Disorders: No Hx Falls: No - GASTROINTESTINAL Hx Gastrointestinal Disorders: No - GENITOURINARY/GYNECOLOGICAL Hx Genitourinary Disorders: No - PSYCHIATRIC Hx Psychophysiologic Disorder: No Hx Substance Use: No - SURGICAL HISTORY Hx Surgeries: Yes Other/Comment: External defib sx, left upper am fistula insertion - ANESTHESIA Hx Anesthesia: Yes Hx Anesthesia Reactions: No Hx Malignant Hyperthermia: No Meds Allergies/Adverse Reactions: Allergies Allergy/AdvReac Type Severity Reaction Status Date / Time No Known Allergies Allergy Verified 09/05/17 19:37 Results - Vital Signs Recent Vital Signs: Last Vital Signs Temp 98.1 F 09/05/17 23:01 Pulse 66 09/05/17 23:01 Resp 18 09/05/17 23:01 BP 129/77 09/05/17 23:01 Pulse Ox 97 09/05/17 22:57 - Labs Result Diagrams: 09/05/17 20:40 09/05/17 20:40 Labs: Laboratory Results - last 24 hr 09/05/17 09/05/17 09/05/17 20:40 20:40 20:40 WBC 6.2 RBC 4.63 Hgb 13.2 D Hct 40.2 MCV 86.8 D MCH 28.4 MCHC 32.8 L RDW 15.5 H Plt Count 151 MPV 8.6 Neut % (Auto) 60.3 Lymph % (Auto) 18.3 L Winkler % (Auto) 15.7 H Eos % (Auto) 5.3 H Baso % (Auto) 0.4 Neut # (Auto) 3.8 Lymph # (Auto) 1.1 Winkler # (Auto) 1.0 H Eos # (Auto) 0.3 Baso # (Auto) 0.0 Sodium 139 Potassium 4.4 Chloride 90 L Carbon Dioxide 35 H Anion Gap 18 BUN 46 H Creatinine 9.4 H* Est GFR ( Amer) 7 Est GFR (Non-Af Amer) 6 Random Glucose 97 Lactic Acid 0.8 Calcium 8.9 Phosphorus 4.1 Magnesium 2.6 H Total Bilirubin 0.8 AST 36 ALT 21 D Alkaline Phosphatase 110 Total Protein 7.8 Albumin 3.8 Globulin 4.0 H Albumin/Globulin Ratio 0.9 L Lipase 387 H Assessment & Plan - Assessment and Plan (Free Text) Assessment: ESRD ON HD M W F .. WILL C/O ANEMIA OF CKD .. H/H GOOD .. NO NEED FOR EPO APKD .. HEMATURIA .. DUSURIA . LOWER ABDO PAIN .. R/O UTI .. INFECTED RENAL CYST R/O BLEEDING CYST MMP P : D/W ER ATTENDING .. ADMIT UNDER PMD .. DR JACOBS OBTAIN U/A @ C/S START EMPERIC AB .. CIPRO 1 GM IVSS DAILY C/O CURRENT MEDS RENAL DIET WILL F/U VERY CLOSELY - Date & Time Date: 09/05/17 Time: 22:00
[2017-09-06] MEDS: Dextrose 5%/0.45% NS 1,000 ML IV SCH ×2 (00:30→20:45)
--- NOTE | 2017-09-06 08:20 | RAD ---
HISTORY: weakness COMPARISON: Chest radiographs 10/27/2013. FINDINGS: LUNGS: No active pulmonary disease. PLEURA: No significant pleural effusion identified, no pneumothorax apparent. CARDIOVASCULAR: Cardiomegaly appears stable. No definite pulmonary vascular congestion. Defibrillator device in position at the left chest with the generator at the lateral left chest wall and solitary lead extending into the left parasagittal chest. OSSEOUS STRUCTURES: No significant abnormalities. VISUALIZED UPPER ABDOMEN: Normal. OTHER FINDINGS: None. IMPRESSION: Stable cardiomegaly. No acute CHF, infiltrate or pleural effusion bilaterally.
[2017-09-06] MEDS ORDERED: Multivitamin With Minerals Tab PO SCH (09:00)
[2017-09-06] MEDS ORDERED: Patient's Own Med (Multivitamin/Iron/Folic Acid [Centrum Complete Multivit Tab] 1 TAB) PO SCH (09:00)
--- NOTE | 2017-09-06 09:29 | CT ---
PROCEDURE: CT Abdomen and Pelvis without intravenous contrast HISTORY: pelvic pain and h/o kidney disease COMPARISON: Noncontrast abdomen and pelvis CT 09/28/2016. TECHNIQUE: Helical CT of the abdomen and pelvis was performed without oral or intravenous contrast as per referring physician request. Contrast dose: 60.96 Radiation dose: Total exam DLP = 620.96 mGy-cm. This CT exam was performed using one or more of the following dose reduction techniques: Automated exposure control, adjustment of the mA and/or kV according to patient size, and/or use of iterative reconstruction technique. FINDINGS: LOWER THORAX: Limited ground-glass opacity scattered at the bilateral lower lobes once again. Cardiomegaly is appreciated with mild pulmonary vascular congestion. No pleural or pericardial effusion appreciable. LIVER: Multifocal cystic changes are appreciate the vast majority or which are too small to characterize. A dominant cyst is stable at the dome posteriorly and to the right measuring 5.1 cm greatest dimension. No definitive intrahepatic biliary dilatation appreciable. GALLBLADDER AND BILE DUCTS: Completely contracted. No radiodense cholelithiasis. PANCREAS: Unremarkable. No gross lesion or ductal dilatation. SPLEEN: Unremarkable. ADRENALS: Unremarkable. No mass. KIDNEYS AND URETERS: Grossly enlarged bilateral kidneys due to innumerable cysts once again with variable punctate calcifications associated and intervening soft tissue isodense to muscle presumably representing normal renal parenchyma. No distortion of the perisinus fat is demonstrated that might indicate hydronephrosis. Clinically correlate nevertheless. Overall pattern is again indicative of polycystic kidney disease VASCULATURE: Unremarkable. No aortic aneurysm. BOWEL: Sigmoid diverticulosis without diverticulitis. Mildly prominent fecal loading proximal half of the colon. No obstruction. No gross mural thickening. APPENDIX: Not identified. PERITONEUM: Unremarkable. No free fluid. No free air. LYMPH NODES: Unremarkable. No enlarged lymph nodes. BLADDER: Unremarkable. REPRODUCTIVE: Unremarkable. BONES: No acute interval fracture or destructive bony lesion appreciable. Benign hemangioma stable at the L4 vertebral body dating back at least to prior abdomen and pelvis CT dated 10/27/2013. OTHER FINDINGS: None. IMPRESSION: 1. Stable noncontrast abdomen and pelvis CT including polycystic renal disease pattern involving both kidneys and the liver. No definite hydronephrosis bilaterally. 2. No CT pattern to suggest appendicitis for lack of contrast agents diminishes the sensitivity this exam however. The appendix not identified. Clinically correlate further. 3. Cardiomegaly and mild pulmonary venous congestion suggested. Concordant preliminary report from [facility], 09/05/2017 9:50 p.m..
[2017-09-06] MEDS: Omega-3-Acid Ethyl Esters 1 GM Cap PO SCH ×2 (10:18→17:25)
[2017-09-06] MEDS: Cholecalciferol 1,000 INTLU TAB PO SCH (10:18)
[2017-09-06] MEDS: Multivitamin Vitamin B Complex (Nephro-Vite) Tab PO SCH (10:19)
--- NOTE | 2017-09-06 11:17 | CP.PCM.CON ---
History of Present Illness - History of Present Illness History of Present Illness: 57 year old male presents to the ED complaining of ongoing and worsening abdominal pain and dysuria with onset of 2 weeks associated with hematuria and frequency. Patient has a history of UTI and was started on Levaquin 2 weeks ago with no improvement. He is also receiving antibiotics via dialysis with no improvements. Patient reports he had a subjective fever and chills yesterday but none today along with generalized weakness. Denies nausea, vomiting, diarrhea, and constipation. still c/o dysuria and lower abd pain with mild tenderness - Medical History PMH: HTN, Chronic Kidney Disease Other PMH: UTI - Surgical History Surgical History: Pacemaker Other surgeries: Left upper extremity AV shunt Review of Systems - Review of Systems All systems: reviewed and no additional remarkable complaints except - Constitutional Constitutional: As Per HPI - EENT Eyes: absent: As Per HPI, Blind Spots, Blurred Vision, Change in Vision, Decreased Night Vision, Diplopia, Discharge, Dry Eye, Exophthalmos, Floaters, Irritation, Itchy Eyes, Loss of Peripheral Vision, Pain, Photophobia, Requires Corrective Lenses, Sees Flashes, Spots in Vision, Tunnel Vision, Other Visual Disturbances, Loss of Vision, Other Ears: absent: As Per HPI, Decreased Hearing, Ear Discharge, Ear Pain, Tinnitus, Abnormal Hearing, Disequilibrium, Dizziness, Other Nose/Mouth/Throat: absent: As Per HPI, Epistaxis, Nasal Congestion, Nasal Discharge, Nasal Obstruction, Nasal Trauma, Nose Pain, Post Nasal Drip, Sinus Pain, Sinus Pressure, Bleeding Gums, Change in Voice, Dental Pain, Dry Mouth, Dysphagia, Halitosis, Hoarsness, Lip Swelling, Mouth Lesions, Mouth Pain, Odynophagia, Sore Throat, Throat Swelling, Tongue Swelling, Facial Pain, Neck Pain, Neck Mass, Other - Cardiovascular Cardiovascular: absent: As Per HPI, Acrocyanosis, Chest Pain, Chest Pain at Rest , Chest Pain with Activity, Claudication, Diaphoresis, Dyspnea, Dyspnea on Exertion, Edema, Irregular Heart Rhythm, Pain Radiating to Arm/Neck/Jaw, Leg Edema, Leg Ulcers, Lightheadedness, Orthopnea, Palpitations, Paroxysmal Nocturnal Dyspnea, Pedal Edema, Radiating Pain, Rapid Heart Rate, Slow Heart Rate, Syncope, Other - Respiratory Respiratory: absent: As Per HPI, Cough, Dyspnea, Hemoptysis, Dyspnea on Exertion , Wheezing, Snoring, Stridor, Pain on Inspiration, Chest Congestion, Excessive Mucous Production, Change in Mucous Color, Pain with Coughing, Other - Gastrointestinal Gastrointestinal: As Per HPI - Genitourinary Genitourinary: As Per HPI - Musculoskeletal Musculoskeletal: absent: As Per HPI, Abnormal Gait, Arthralgias, Atrophy, Back Pain, Deformity, Joint Swelling, Limited Range of Motion, Loss of Height, Muscle Cramps, Muscle Weakness, Myalgias, Neck Pain, Numbness, Radiating Pain into Limb, Stiffness, Tingling, Other - Integumentary Integumentary: absent: As Per HPI, Acne, Alopecia, Bleeding Lesions, Change in Hair, Change in Nails, Change in Pigmentation, Changing Lesions, Dry Skin, Erythema, Furuncle, Hirsutism, Lesions, New Lesions, Non-Healing Lesions, Photosensitivity, Pruritus, Rash, Skin Pain, Skin Ulcer, Sores, Striae, Swelling , Unusual Bruising, Wounds, Jaundice, Other - Neurological Neurological: absent: As Per HPI, Abnormal Gait, Abnormal Hearing, Abnormal Movements, Abnormal Speech, Behavioral Changes, Burning Sensations, Confusion, Convulsions, Disequilibrium, Dizziness, Numbness, Focal Weakness, Frequent Falls , Headaches, Lack of Coordination, Loss of Vision, Memory Loss, Paresthesias, Radicular Pain, Restless Legs, Sensory Deficit, Syncope, Tingling, Tremor, Vertigo, Weakness, Other Visual Disturbances, Other - Psychiatric Psychiatric: absent: As Per HPI, Abnormal Sleep Pattern, Anhedonia, Anxiety, Auditory Hallucinations, Behavioral Changes, Change in Appetite, Change in Libido, Confusion, Depression, Difficulty Concentrating, Hallucinations, Homicidal Ideation, Hopelessness, Irritability, Memory Loss, Mood Swings, Panic Attacks, Paranoia, Suicidal Ideation, Visual Hallucinations, Tactile Hallucinations, Other - Endocrine Endocrine: absent: As Per HPI, Change in Body Appearance, Change in Libido, Cold Intolorance, Deepening of Voice, Excessive Sweating, Fatigue, Flushing, Heat Intolorance, Increase in Ring/Shoe/Hat Size, Palpitations, Polydipsia, Polyphagia, Polyuria, Other - Hematologic/Lymphatic Hematologic: absent: As Per HPI, Easy Bleeding, Easy Bruising, Lymphadenopathy, Other Past Patient History - Past Medical History & Family History Past Medical History?: Yes - Past Social History Smoking Status: Never Smoked - CARDIAC Hx Cardiac Disorders: Yes (HTN, pacemaker) - PULMONARY Hx Respiratory Disorders: No - NEUROLOGICAL Hx Neurological Disorder: No - HEENT Hx HEENT Problems: No - RENAL Hx Chronic Kidney Disease: Yes - ENDOCRINE/METABOLIC Hx Endocrine Disorders: No - HEMATOLOGICAL/ONCOLOGICAL Hx Blood Disorders: No - INTEGUMENTARY Hx Dermatological Problems: No - MUSCULOSKELETAL/RHEUMATOLOGICAL Hx Musculoskeletal Disorders: No Hx Falls: No - GASTROINTESTINAL Hx Gastrointestinal Disorders: No - GENITOURINARY/GYNECOLOGICAL Hx Genitourinary Disorders: No - PSYCHIATRIC Hx Psychophysiologic Disorder: No Hx Substance Use: No - SURGICAL HISTORY Hx Surgeries: Yes Other/Comment: External defib sx, left upper am fistula insertion - ANESTHESIA Hx Anesthesia: Yes Hx Anesthesia Reactions: No Hx Malignant Hyperthermia: No Meds Allergies/Adverse Reactions: Allergies Allergy/AdvReac Type Severity Reaction Status Date / Time No Known Allergies Allergy Verified 09/05/17 19:37 - Medications Medications: Current Medications Aspirin (Ecotrin) 81 mg PO DAILY [facility] Last Admin: 09/06/17 10:17 Dose: 81 mg Atorvastatin Calcium (Lipitor) 10 mg PO DAILY [facility] Last Admin: 09/06/17 10:27 Dose: Not Given Cholecalciferol (Vitamin D) 5,000 intlu PO DAILY [facility] Last Admin: 09/06/17 10:18 Dose: 5,000 intlu Famotidine (Pepcid) 20 mg PO DAILY [facility] Last Admin: 09/06/17 10:18 Dose: 20 mg Home Med (Febuxostat [Uloric]) 40 mg PO DAILY [facility] Dextrose/Sodium Chloride (Dextrose 5%/0.45% Ns 1000 Ml) 1,000 mls @ 60 mls/hr IV .[id number] [facility] Stop: 09/07/17 00:00 Last Admin: 09/06/17 00:30 Dose: 60 mls/hr Metoprolol Tartrate (Lopressor) 25 mg PO DAILY [facility] Last Admin: 09/06/17 10:22 Dose: 25 mg Multivitamins/Minerals (Therapeutic-M Tab) 1 tab PO DAILY [facility] Last Admin: 09/06/17 10:18 Dose: 1 tab Prieh-5-Tzeu Ethyl Esters (Lovaza) 1 gm PO BID [facility] Last Admin: 09/06/17 10:18 Dose: 1 gm Pantoprazole Sodium (Protonix Inj) 40 mg IVP DAILY [facility] Last Admin: 09/06/17 10:18 Dose: 40 mg Sevelamer HCl (Renagel) 800 mg PO TID [facility] Last Admin: 09/06/17 10:11 Dose: Not Given Valsartan (Diovan) 320 mg PO DAILY [facility] Last Admin: 09/06/17 10:17 Dose: 320 mg Vitamin B Complex/Vit C/Folic Acid (Nephro-Valeriano) 1 tab PO DAILY [facility] Last Admin: 09/06/17 10:19 Dose: 1 tab Physical Exam - Constitutional Appears: Non-toxic, Chronically Ill - Head Exam Head Exam: NORMOCEPHALIC - Eye Exam Eye Exam: PERRL - ENT Exam ENT Exam: Mucous Membranes Dry - Neck Exam Neck exam: Negative for: Lymphadenopathy - Respiratory Exam Respiratory Exam: Decreased Breath Sounds - Cardiovascular Exam Cardiovascular Exam: REGULAR RHYTHM - GI/Abdominal Exam GI & Abdominal Exam: Diminished Bowel Sounds, Guarding, Soft, Tenderness. absent: Rebound, Rigid - Rectal Exam Rectal Exam: Deferred - Exam Exam: NORMAL INSPECTION - Extremities Exam Extremities exam: Negative for: pedal edema - Back Exam Back exam: absent: CVA tenderness (L), CVA tenderness (R) - Neurological Exam Neurological exam: Alert, CN II-XII Intact, Oriented x3, Reflexes Normal - Psychiatric Exam Psychiatric exam: Normal Mood - Skin Skin Exam: Dry Results - Vital Signs Recent Vital Signs: Last Vital Signs Temp 98.3 F 09/06/17 01:00 Pulse 93 H 09/06/17 10:22 Resp 18 09/06/17 01:00 BP 126/74 09/06/17 10:22 Pulse Ox 97 09/06/17 01:00 - Labs Result Diagrams: 09/05/17 20:40 09/05/17 20:40 Labs: Laboratory Results - last 24 hr 09/05/17 09/05/17 09/05/17 20:40 20:40 20:40 WBC 6.2 RBC 4.63 Hgb 13.2 D Hct 40.2 MCV 86.8 D MCH 28.4 MCHC 32.8 L RDW 15.5 H Plt Count 151 MPV 8.6 Neut % (Auto) 60.3 Lymph % (Auto) 18.3 L Desha % (Auto) 15.7 H Eos % (Auto) 5.3 H Baso % (Auto) 0.4 Neut # (Auto) 3.8 Lymph # (Auto) 1.1 Desha # (Auto) 1.0 H Eos # (Auto) 0.3 Baso # (Auto) 0.0 Sodium 139 Potassium 4.4 Chloride 90 L Carbon Dioxide 35 H Anion Gap 18 BUN 46 H Creatinine 9.4 H* Est GFR ( Amer) 7 Est GFR (Non-Af Amer) 6 Random Glucose 97 Lactic Acid 0.8 Calcium 8.9 Phosphorus 4.1 Magnesium 2.6 H Total Bilirubin 0.8 AST 36 ALT 21 D Alkaline Phosphatase 110 Total Protein 7.8 Albumin 3.8 Globulin 4.0 H Albumin/Globulin Ratio 0.9 L Lipase 387 H Assessment & Plan (1) ESRD (end stage renal disease) Status: Acute (2) Intractable abdominal pain Status: Acute (3) Polycystic kidney disease Status: Acute (4) Gross hematuria Status: Acute - Assessment and Plan (Free Text) Assessment: abd pain and UTI- probable cystitis recc eval for cysto cont iv antibiotics Plan: start merrem
[2017-09-06] MEDS: Meropenem 1 GM in Sodium Chloride 0.9% 100 ML IVPB SCH ×2 (12:49→20:46)
--- NOTE | 2017-09-06 15:05 | CARD ---
APPROVED REPORT EKG Measurement Heart [id number] <Conclusion> Normal sinus rhythm Prolonged QT Abnormal ECG
--- NOTE | 2017-09-06 18:34 | CP.PCM.HP ---
History of Present Illness - History of Present Illness History of Present Illness: 57 yo male with hx ESRD due to APCKD, on HD (MWF), pacemaker, presented to the ED complaining of ongoing and worsening abdominal pain and dysuria associated with hematuria and frequency. He has been seen by chemical librarian Dr. Rangel recently, and treated with outpatient course of Levaquin 2 weeks ago, but symptoms have persisted. In ED, pt reported that he had subjective fever, chills, and weakness. Admitted for IV antibiotics due to failure of outpatient treatment. Denies chest pain, shortness of breath, change in appetite, GI upset. Keyboarding Teacher: Dr. Rangel Present on Admission - Present on Admission Any Indicators Present on Admission: No Past Patient History - Past Medical History & Family History Past Medical History?: Yes - Past Social History Smoking Status: Never Smoked Alcohol: None Drugs: Denies - CARDIAC Hx Cardiac Disorders: Yes (HTN, pacemaker) - PULMONARY Hx Respiratory Disorders: No - NEUROLOGICAL Hx Neurological Disorder: No - HEENT Hx HEENT Problems: No - RENAL Hx Chronic Kidney Disease: Yes Hx Renal Failure: Yes Other/Comment: APCKD - ENDOCRINE/METABOLIC Hx Endocrine Disorders: No - HEMATOLOGICAL/ONCOLOGICAL Hx Blood Disorders: No - INTEGUMENTARY Hx Dermatological Problems: No - MUSCULOSKELETAL/RHEUMATOLOGICAL Hx Musculoskeletal Disorders: No Hx Falls: No - GASTROINTESTINAL Hx Gastrointestinal Disorders: No - GENITOURINARY/GYNECOLOGICAL Hx Genitourinary Disorders: No - PSYCHIATRIC Hx Psychophysiologic Disorder: No Hx Substance Use: No - SURGICAL HISTORY Hx Surgeries: Yes Other/Comment: pacemaker, left upper extremity fistula insertion - ANESTHESIA Hx Anesthesia: Yes Hx Anesthesia Reactions: No Hx Malignant Hyperthermia: No Meds Allergies/Adverse Reactions: Allergies Allergy/AdvReac Type Severity Reaction Status Date / Time No Known Allergies Allergy Verified 09/05/17 19:37 Physical Exam - Constitutional Appears: Non-toxic, No Acute Distress - Head Exam Head Exam: NORMAL INSPECTION - Eye Exam Eye Exam: Normal appearance - ENT Exam ENT Exam: Mucous Membranes Moist - Respiratory Exam Respiratory Exam: Clear to Auscultation Bilateral, NORMAL BREATHING PATTERN - Cardiovascular Exam Cardiovascular Exam: REGULAR RHYTHM - GI/Abdominal Exam GI & Abdominal Exam: Normal Bowel Sounds, Soft Additional comments: suprapubic tenderness - Back Exam Back exam: NORMAL INSPECTION - Neurological Exam Neurological exam: Alert, Oriented x3 - Skin Skin Exam: Dry, Warm Results - Vital Signs Recent Vital Signs: Last Vital Signs Temp 98.3 F 09/06/17 17:00 Pulse 59 L 09/06/17 17:00 Resp 18 09/06/17 17:00 BP 120/69 09/06/17 17:00 Pulse Ox 96 09/06/17 17:00 - Labs Result Diagrams: 09/05/17 20:40 09/05/17 20:40 Labs: Laboratory Results - last 24 hr 09/05/17 09/05/17 09/05/17 20:40 20:40 20:40 WBC 6.2 RBC 4.63 Hgb 13.2 D Hct 40.2 MCV 86.8 D MCH 28.4 MCHC 32.8 L RDW 15.5 H Plt Count 151 MPV 8.6 Neut % (Auto) 60.3 Lymph % (Auto) 18.3 L [place] % (Auto) 15.7 H Eos % (Auto) 5.3 H Baso % (Auto) 0.4 Neut # (Auto) 3.8 Lymph # (Auto) 1.1 [place] # (Auto) 1.0 H Eos # (Auto) 0.3 Baso # (Auto) 0.0 Sodium 139 Potassium 4.4 Chloride 90 L Carbon Dioxide 35 H Anion Gap 18 BUN 46 H Creatinine 9.4 H* Est GFR ( Amer) 7 Est GFR (Non-Af Amer) 6 Random Glucose 97 Lactic Acid 0.8 Calcium 8.9 Phosphorus 4.1 Magnesium 2.6 H Total Bilirubin 0.8 AST 36 ALT 21 D Alkaline Phosphatase 110 Total Protein 7.8 Albumin 3.8 Globulin 4.0 H Albumin/Globulin Ratio 0.9 L Lipase 387 H Prostate Specific Ag 09/06/17 11:50 WBC RBC Hgb Hct MCV MCH MCHC RDW Plt Count MPV Neut % (Auto) Lymph % (Auto) [place] % (Auto) Eos % (Auto) Baso % (Auto) Neut # (Auto) Lymph # (Auto) [place] # (Auto) Eos # (Auto) Baso # (Auto) Sodium Potassium Chloride Carbon Dioxide Anion Gap BUN Creatinine Est GFR ( Amer) Est GFR (Non-Af Amer) Random Glucose Lactic Acid Calcium Phosphorus Magnesium Total Bilirubin AST ALT Alkaline Phosphatase Total Protein Albumin Globulin Albumin/Globulin Ratio Lipase Prostate Specific Ag 5.97 H Assessment & Plan (1) Urinary tract infection Status: Acute Priority: High (2) Hematuria Status: Acute (3) ESRD (end stage renal disease) Status: Chronic (4) Polycystic kidney disease Status: Chronic - Assessment and Plan (Free Text) Plan: - ID consult appreciated - meropenem ordered by Dr. Damon; will continue to follow recs - Send urine for culture and sensitivity - Urology consult - pending recs - Nephro - Dr. Rangel - consult appreciated; had dialysis 09/05, schedule M - Home meds - Renal diet - Imaging reviewed - SCDs
--- NOTE | 2017-09-07 03:58 | CON ---
DATE: 09/06/2017 COMPREHENSIVE UROLOGIC CONSULTATION TIME OF CONSULTATION: 6:50 p.m. BRIEF HISTORY: The patient is a 57-year-old male from [place], on dialysis for treatment of end-stage renal disease secondary to polycystic kidneys. Requested evaluation for this patient for possible urinary retention and complaints of voiding small amounts of urine frequently. A bladder scan at the bedside this evening showed 0 residual urine in the bladder at this time. The patient does complain of straining to void, but only voids very small amounts and sometimes no urine output. He denies any dysuria, gross hematuria or renal colic, but does complain of some lower abdominal pain, and the patient had an abdominopelvic CT done, which showed just his polycystic kidneys, otherwise a normal urinary bladder and the study was done today, 09/06/2017. He also had a pacemaker and defibrillator placed previously. The patient did have a prior history a few weeks ago of dysuria associated with hematuria and urinary frequency, and was treated with Levaquin. He still complains of some lower abdominal discomfort. He is a nonsmoker, and no history of any alcohol use. ALLERGIES: HE HAS NO KNOWN ALLERGIES TO ANY MEDICATIONS. PHYSICAL EXAMINATION: GENERAL: He is a well-developed, well-nourished male. He is alert. He is oriented. HEENT: Grossly within normal limits. NECK: Supple. Thyroid not palpable. ABDOMEN: Soft. Not distended. NEUROLOGIC: No CVA tenderness and minimal suprapubic tenderness. GENITALIA: The patient is noncircumcised with normal glans and meatus without any rashes or lesions visualized. Testis are down bilaterally, nontender, without any masses. RECTAL: Normal rectal tone without fluctuance or masses. Prostate is average sized to slightly enlarged, smooth, symmetrical, and nontender without nodules or indurations with a palpable medial sulcus. EXTREMITIES: He has full range of motion to both upper and lower extremities. LABORATORY EVALUATION: On 09/05/2017, his CBC shows a WBC count of 6.2, hemoglobin of 13.2, and hematocrit of 40.2, platelet count was 151,000. His chem profile shows a sodium of 139, potassium 4.4, chloride 90, CO2 35, BUN and creatinine 46 and 9.4 respectively with a GFR of 6, random glucose is 97. Lactic acid was 0.8, calcium 8.9, phosphorus 4.1, magnesium 2.6, total bilirubin 0.8, AST 36, ALT 21, alkaline phosphatase 110. Lipase 387, which is elevated. PSA was 5.97, which is elevated and possibly suspicious for prostate cancer in this 57-year-old male patient. The elevated PSA, however, may be related to a previous infection that the patient had just a few weeks ago and was treated with Levaquin. This will have to be repeated in about one month. If the PSA still remains elevated, the patient will need a prostate MRI. DIAGNOSTIC IMPRESSION: 1. Lower abdominal discomfort and pain. 2. Elevated PSA 5.97. PLAN: Plan for this patient is to get an urinalysis and C and S, and repeat the PSA in six weeks. Ziggy Matos MD MTDD
[2017-09-07 06:15] LABS: HEMOGLOBIN 14.4 g/dL (12.0-18.0); MEAN CELL VOLUME 86.2 fl (80.0-94.0); MEAN CORPUSCULAR HEMOGLOBIN 28.3 pg (27.0-31.0); MEAN CORPUSCULAR HGB CONC 32.8 g/dL (33.0-37.0); RBC 5.1 Mil/uL (4.40-5.90); RED CELL DISTRIBUTION WIDTH 15.2 % (11.5-14.5); WHITE BLOOD COUNT 7.1 K/uL (4.8-10.8)
[2017-09-07 06:40] LABS: CALCIUM 8.9 mg/dL (8.4-10.2)
[2017-09-07] MEDS: Omega-3-Acid Ethyl Esters 1 GM Cap PO SCH ×2 (09:20→18:14)
[2017-09-07] MEDS: Multivitamin Vitamin B Complex (Nephro-Vite) Tab PO SCH (09:20)
[2017-09-07] MEDS: Cholecalciferol 1,000 INTLU TAB PO SCH (09:21)
[2017-09-07] MEDS: Meropenem 1 GM in Sodium Chloride 0.9% 100 ML IVPB SCH ×2 (09:27→21:19)
--- NOTE | 2017-09-07 11:22 | CP.PCM.PN ---
Subjective - Date & Time of Evaluation Date of Evaluation: 09/07/17 Time of Evaluation: 11:21 - Subjective Subjective: Patient continues to have oain and discomfort on the suprapubic area and a lot of discomfort at the urethral area. Objective - Vital Signs/Intake and Output Vital Signs (last 24 hours): Temp Pulse Resp BP Pulse Ox 98 F 65 20 118/72 97 09/07/17 08:33 09/07/17 08:33 09/07/17 08:33 09/07/17 08:33 09/07/17 08:33 - Medications Medications: Current Medications Aspirin (Ecotrin) 81 mg PO DAILY [facility] Last Admin: 09/07/17 09:21 Dose: 81 mg Atorvastatin Calcium (Lipitor) 10 mg PO DAILY [facility] Last Admin: 09/07/17 09:22 Dose: 10 mg Cholecalciferol (Vitamin D) 5,000 intlu PO DAILY [facility] Last Admin: 09/07/17 09:21 Dose: 5,000 intlu Famotidine (Pepcid) 20 mg PO DAILY [facility] Last Admin: 09/07/17 09:20 Dose: 20 mg Home Med (Febuxostat [Uloric]) 40 mg PO DAILY [facility] Meropenem 1 gm/ Sodium (Chloride) 100 mls @ 100 mls/hr IVPB Q12 [facility] PRN Reason: Protocol Last Admin: 09/07/17 09:27 Dose: 100 mls/hr Metoprolol Tartrate (Lopressor) 25 mg PO DAILY [facility] Last Admin: 09/07/17 09:26 Dose: Not Given Uglnn-6-Rzwj Ethyl Esters (Lovaza) 1 gm PO BID [facility] Last Admin: 09/07/17 09:20 Dose: 1 gm Pantoprazole Sodium (Protonix Inj) 40 mg IVP DAILY [facility] Last Admin: 09/07/17 09:21 Dose: 40 mg Sevelamer HCl (Renagel) 800 mg PO TID [facility] Last Admin: 09/07/17 09:20 Dose: 800 mg Valsartan (Diovan) 320 mg PO DAILY [facility] Last Admin: 09/07/17 09:26 Dose: Not Given Vitamin B Complex/Vit C/Folic Acid (Nephro-Valeriano) 1 tab PO DAILY [facility] Last Admin: 09/07/17 09:20 Dose: 1 tab - Labs Labs: 09/07/17 05:55 09/07/17 05:55
--- NOTE | 2017-09-07 11:37 | CP.PCM.PN ---
Subjective - Date & Time of Evaluation Date of Evaluation: 09/07/17 Time of Evaluation: 12:00 - Subjective Subjective: SEEN ON RENAL F/U HD IS STARTING SHORTLY SUPRA PUBIC PAIN IS IMPROVED DYSURIA IS BETTER FEELS IMPROVIMG Objective - Vital Signs/Intake and Output Vital Signs (last 24 hours): Temp Pulse Resp BP Pulse Ox 98 F 65 20 118/72 97 09/07/17 08:33 09/07/17 08:33 09/07/17 08:33 09/07/17 08:33 09/07/17 08:33 - Medications Medications: Current Medications Aspirin (Ecotrin) 81 mg PO DAILY [facility] Last Admin: 09/07/17 09:21 Dose: 81 mg Atorvastatin Calcium (Lipitor) 10 mg PO DAILY [facility] Last Admin: 09/07/17 09:22 Dose: 10 mg Cholecalciferol (Vitamin D) 5,000 intlu PO DAILY [facility] Last Admin: 09/07/17 09:21 Dose: 5,000 intlu Famotidine (Pepcid) 20 mg PO DAILY [facility] Last Admin: 09/07/17 09:20 Dose: 20 mg Home Med (Febuxostat [Uloric]) 40 mg PO DAILY [facility] Meropenem 1 gm/ Sodium (Chloride) 100 mls @ 100 mls/hr IVPB Q12 [facility] PRN Reason: Protocol Last Admin: 09/07/17 09:27 Dose: 100 mls/hr Metoprolol Tartrate (Lopressor) 25 mg PO DAILY [facility] Last Admin: 09/07/17 09:26 Dose: Not Given Eepvc-6-Algf Ethyl Esters (Lovaza) 1 gm PO BID [facility] Last Admin: 09/07/17 09:20 Dose: 1 gm Pantoprazole Sodium (Protonix Inj) 40 mg IVP DAILY [facility] Last Admin: 09/07/17 09:21 Dose: 40 mg Sevelamer HCl (Renagel) 800 mg PO TID [facility] Last Admin: 09/07/17 09:20 Dose: 800 mg Valsartan (Diovan) 320 mg PO DAILY [facility] Last Admin: 09/07/17 09:26 Dose: Not Given Vitamin B Complex/Vit C/Folic Acid (Nephro-Valeriano) 1 tab PO DAILY [facility] Last Admin: 09/07/17 09:20 Dose: 1 tab - Labs Labs: 09/07/17 05:55 09/07/17 05:55 Assessment and Plan - Assessment and Plan (Free Text) Assessment: ESRD ON HD M W F .. HD TO START SHORTLY .. HD ORDERS GIVEN TO HD - RN CONSENT OBTAINED APCD .. WITH COMPLICATION HEMATURIA .. DYSURIA .. SUPRA PUBIC PAIN .. ON IVAB NEEDS ? .. NEEDS CYSTO ? MMP P : HD M W F .. TO BE C/O UTI ON IVAB C/O CURRENT CARE C/O PRESENT MEDS
[2017-09-08 00:23] VITALS: RESP 20
[2017-09-08 08:13] VITALS: BP 126/70; PULSE 79; TEMP 97.6; O2SAT 100
[2017-09-08] MEDS: Omega-3-Acid Ethyl Esters 1 GM Cap PO SCH (08:46)
[2017-09-08] MEDS: Multivitamin Vitamin B Complex (Nephro-Vite) Tab PO SCH (08:46)
[2017-09-08] MEDS: Cholecalciferol 1,000 INTLU TAB PO SCH (08:47)
[2017-09-08] MEDS: Meropenem 1 GM in Sodium Chloride 0.9% 100 ML IVPB SCH (09:13)
--- NOTE | 2017-09-08 15:41 | CP.PCM.DIS ---
Provider - Provider Date of Admission: 09/05/17 21:57 Attending physician: Tommy Marquez MD Consults: Nephrology - Dr. Claire MCNEAL - Dr. Damon Time Spent in preparation of Discharge (in minutes): 30 Diagnosis - Discharge Diagnosis (1) Urinary tract infection Status: Acute Priority: High (2) Hematuria Status: Acute (3) ESRD (end stage renal disease) Status: Chronic (4) Polycystic kidney disease Status: Chronic Hospital Course - Lab Results Lab Results: Micro Results 09/05/17 20:55 Blood-Venous Blood Culture - Preliminary NO GROWTH AFTER 48 HOURS 09/05/17 20:40 Blood-Venous Blood Culture - Preliminary NO GROWTH AFTER 48 HOURS 09/05/17 12:00 Urine,Clean Catch Urine Culture - Final <10,000 CFU/ML. MULTIPLE SPECIES. PROBABLE CONTAMINATION. Most Recent Lab Values WBC 7.1 K/uL (4.8-10.8) 09/07/17 05:55 RBC 5.10 Mil/uL (4.40-5.90) 09/07/17 05:55 Hgb 14.4 g/dL (12.0-18.0) 09/07/17 05:55 Hct 43.9 % (35.0-51.0) 09/07/17 05:55 MCV 86.2 fl (80.0-94.0) 09/07/17 05:55 MCH 28.3 pg (27.0-31.0) 09/07/17 05:55 MCHC 32.8 g/dL (33.0-37.0) L 09/07/17 05:55 RDW 15.2 % (11.5-14.5) H 09/07/17 05:55 Plt Count 172 K/uL (130-400) 09/07/17 05:55 MPV 8.6 fl (7.2-11.7) 09/05/17 20:40 Neut % (Auto) 60.3 % (50.0-75.0) 09/05/17 20:40 Lymph % (Auto) 18.3 % (20.0-40.0) L 09/05/17 20:40 Dewey % (Auto) 15.7 % (0.0-10.0) H 09/05/17 20:40 Eos % (Auto) 5.3 % (0.0-4.0) H 09/05/17 20:40 Baso % (Auto) 0.4 % (0.0-2.0) 09/05/17 20:40 Neut # (Auto) 3.8 K/uL (1.8-7.0) 09/05/17 20:40 Lymph # (Auto) 1.1 K/uL (1.0-4.3) 09/05/17 20:40 Dewey # (Auto) 1.0 K/uL (0.0-0.8) H 09/05/17 20:40 Eos # (Auto) 0.3 K/uL (0.0-0.7) 09/05/17 20:40 Baso # (Auto) 0.0 K/uL (0.0-0.2) 09/05/17 20:40 Sodium 137 mmol/l (132-148) 09/07/17 05:55 Potassium 4.6 MMOL/L (3.6-5.0) 09/07/17 05:55 Chloride 94 mmol/L (98-107) L 09/07/17 05:55 Carbon Dioxide 29 mmol/L (22-30) 09/07/17 05:55 Anion Gap 19 (10-20) 09/07/17 05:55 BUN 59 mg/dl (9-20) H 09/07/17 05:55 Creatinine 12.5 mg/dl (0.8-1.5) H* D 09/07/17 05:55 Est GFR ( Amer) 5 09/07/17 05:55 Est GFR (Non-Af Amer) 4 09/07/17 05:55 Random Glucose 81 mg/dL (75-110) 09/07/17 05:55 Lactic Acid 0.8 MMOL/L (0.7-2.1) 09/05/17 20:40 Calcium 8.9 mg/dL (8.4-10.2) 09/07/17 05:55 Phosphorus 4.1 mg/dl (2.5-4.5) 09/05/17 20:40 Magnesium 2.6 MG/DL (1.6-2.3) H 09/05/17 20:40 Total Bilirubin 0.8 mg/dl (0.2-1.3) 09/05/17 20:40 AST 36 U/L (17-59) 09/05/17 20:40 ALT 21 U/L (21-72) D 09/05/17 20:40 Alkaline Phosphatase 110 U/L (38-126) 09/05/17 20:40 Total Protein 7.8 G/DL (6.3-8.2) 09/05/17 20:40 Albumin 3.8 g/dL (3.5-5.0) 09/05/17 20:40 Globulin 4.0 gm/dL (2.2-3.9) H 09/05/17 20:40 Albumin/Globulin Ratio 0.9 (1.0-2.1) L 09/05/17 20:40 Lipase 387 U/L (23-300) H 09/05/17 20:40 Prostate Specific Ag 5.97 ng/ML (0.00-4.0) H 09/06/17 11:50 - Hospital Course Hospital Course: 57 yo male with hx 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 Initially presented to the ED complaining of ongoing and worsening abdominal pain and dysuria. Received IV meropenem as per ID. He remained stable throughout the hospital stay and his symptoms of suprapubic pain and urinary discomfort improved. Resume all home meds, with addition of 500 mg keflex. F/u with PMD and with electric motor tester Dr. Rangel, as well as urologist Dr. Matos. Discharge Exam - Head Exam Head Exam: ATRAUMATIC, NORMOCEPHALIC - Eye Exam Eye Exam: Normal appearance - ENT Exam ENT Exam: Mucous Membranes Moist - Respiratory Exam Respiratory Exam: NORMAL BREATHING PATTERN, UNREMARKABLE - Cardiovascular Exam Cardiovascular Exam: REGULAR RHYTHM - GI/Abdominal Exam GI & Abdominal Exam: Normal Bowel Sounds, Soft - Extremities Exam Extremities exam: normal inspection - Neurological Exam Neurological exam: Alert, Oriented x3 - Skin Skin Exam: Dry, Normal Color, Warm Discharge Plan - Discharge Medications Prescriptions: Cephalexin [cephalexin] 500 mg PO BID #20 cap - Follow Up Plan Condition: FAIR Disposition: HOME/ ROUTINE Patient education suggested?: Yes Instructions: Hemodialysis (DC), Dysuria, Adult (DC), Blood in the Urine ( Hematuria), Adult (DC) Additional Instructions: hacer reno con coughlin primario dentro de 1 semana pt. cleared for discharge to Home today by , and Rx for Keflex 500 mg po bid x 10 days provided as per recommendation Referrals: Ziggy Matos MD [Staff Provider] - Dorys Rangel MD [Staff Provider] - Tommy Marquez MD [Family Provider] -
== END 2017-09-08 15:00 | disposition home or self-care (01) | DRG 689 ==
LOC: H.ER 19:34 → H.ERHOLD 21:57 → H.MEDSURG1 23:22
PROVIDERS: ADMIT Family Medicine; ATTEND Family Medicine
PROC: 5A1D70Z Performance of Urinary Filtration, Intermittent, Less than 6 Hours Per Day (ICD-10-PCS; principal; 2017-09-07)
DX: N30.91 Cystitis, unspecified with hematuria (principal); N18.6 End stage renal disease; I12.0 Hypertensive chronic kidney disease with stage 5 chronic kidney disease or end stage renal disease; Q61.2 Polycystic kidney, adult type; D63.1 Anemia in chronic kidney disease; Z99.2 Dependence on renal dialysis; R97.20 Elevated prostate specific antigen [PSA]; Z95.0 Presence of cardiac pacemaker; K59.00 Constipation, unspecified

== ENCOUNTER 2018-02-17 22:44 | Emergency (ER) | payer MEDICARE, MEDICAID ==
[2018-02-17 23:34] LABS: BASO % 0.6 % (0.0-2.0); EOS # 1.1 K/uL (0.0-0.7); EOS % 18.7 % (0.0-4.0); HEMOGLOBIN 16.4 g/dL (12.0-18.0); LYMPH # 1.5 K/uL (1.0-4.3); LYMPH % 27.2 % (20.0-40.0); MEAN CELL VOLUME 85.8 fl (80.0-94.0); MEAN CORPUSCULAR HGB CONC 32.7 g/dL (33.0-37.0); MEAN PLATELET VOLUME 8.1 fl (7.2-11.7); MONO # 0.8 K/uL (0.0-0.8); MONO % 13.4 % (0.0-10.0); NEUT # 2.3 K/uL (1.8-7.0); NEUT % 40.1 % (50.0-75.0); NRBC % 0.1 % (0.0-0.0); RBC 5.86 Mil/uL (4.40-5.90); RED CELL DISTRIBUTION WIDTH 14.1 % (11.5-14.5); WHITE BLOOD COUNT 5.7 K/uL (4.8-10.8)
--- NOTE | 2018-02-17 23:35 | ED PDOC ---
HPI: Male Pain Time Seen by Provider: 02/17/18 22:56 Chief Complaint (Nursing): Male Genitourinary Chief Complaint (Provider): Male Genitourinary History Per: Patient History/Exam Limitations: no limitations Onset/Duration Of Symptoms: Days (x14) Current Symptoms Are (Timing): Still Present Additional Complaint(s): 58 y/o male with a PMHx of End Stage Renal Disease, HTN and CHF with a defibrillator presents to the ED for evaluation of hematuria, onset two weeks ag o. Patient reports he was recently treated with antibiotics for symptoms with no improvement by Dr. Escobar. Patient states he normally does not urinate due to ESRD. However, patient reports he urinated three times today and noticed a small amount of blood in his urine, thus prompting today's visit. Patient reports hematuria is associated with mild abdominal discomfort. Denies nausea, vomiting, abnormal stool and fevers. PMD: Tommy Marquez Past Medical History Reviewed: Historical Data, Nursing Documentation, Vital Signs Vital Signs: Last Vital Signs Temp 98.2 F 02/17/18 22:51 Pulse 70 02/17/18 22:51 Resp 16 02/17/18 22:51 BP 147/78 02/17/18 22:51 Pulse Ox 100 02/17/18 22:51 - Medical History PMH: Bronchitis, HTN, End Stage Renal Disease, Chronic Kidney Disease - Surgical History Surgical History: Pacemaker - Family History Family History: States: Hypertension - Home Medications Home Medications: Ambulatory Orders Medication Instructions Recorded Aspirin [Ecotrin] 81 mg PO DAILY 09/28/16 Cholecalciferol (Vitamin D3) 5,000 unit PO DAILY 09/28/16 [Vitamin D3] Febuxostat [Uloric] 40 mg PO DAILY 09/28/16 Folic Acid/Vit B Complex and C 1 tab PO DAILY 09/28/16 [Dee-Valeriano Tablet] Multivitamin/Iron/Folic Acid 1 tab PO DAILY 09/28/16 [Centrum Complete Multivit Tab] [id number] Ethyl Esters 1 GM 1 gm PO BID 09/28/16 [Lovaza] Sevelamer Carbonate [Renvela] 800 mg PO TID 09/28/16 Simvastatin [Zocor] 20 mg PO DAILY 09/28/16 Valsartan [Diovan] 320 mg PO DAILY 09/28/16 Famotidine [Pepcid] 20 mg PO DAILY 09/05/17 Metoprolol Tartrate [Lopressor] 25 mg PO DAILY 09/05/17 Cephalexin [cephalexin] 500 mg PO BID #20 cap 09/08/17 Levofloxacin [Levaquin] 750 mg PO DAILY 10 Days #10 tablet 02/18/18 - Allergies Allergies/Adverse Reactions: Allergies Allergy/AdvReac Type Severity Reaction Status Date / Time PLASTIC TAPE Allergy RASH Uncoded 02/17/18 22:49 Review of Systems ROS Statement: Except As Marked, All Systems Reviewed And Found Negative Constitutional: Negative for: Fever Gastrointestinal: Positive for: Abdominal Pain (MILD ABDOMINAL DISCOMFORT). Negative for: Nausea, Vomiting, Diarrhea, Constipation Genitourinary Male: Positive for: Hematuria Physical Exam - Reviewed Nursing Documentation Reviewed: Yes Vital Signs Reviewed: Yes - Physical Exam Appears: Positive for: No Acute Distress Head Exam: Positive for: ATRAUMATIC, NORMOCEPHALIC Skin: Positive for: Normal Color, Warm, Dry Eye Exam: Positive for: Normal appearance, EOMI, PERRL Neck: Positive for: Normal, Painless ROM Cardiovascular/Chest: Positive for: Regular Rate, Rhythm, Other (Defibrillator noted on the left chest). Negative for: Murmur Respiratory: Positive for: Normal Breath Sounds. Negative for: Respiratory Distress Gastrointestinal/Abdominal: Positive for: Normal Exam, Soft. Negative for: Tenderness Back: Positive for: Normal Inspection. Negative for: L CVA Tenderness, R CVA Tenderness, Vertebral Tenderness Extremity: Positive for: Normal ROM, Other (Dialysis Fistula on the left arm). Negative for: Pedal Edema, Deformity Neurologic/Psych: Positive for: Alert, Oriented. Negative for: Motor/Sensory Deficits - Laboratory Results Result Diagrams: 02/17/18 23:21 02/17/18 23:21 - ECG O2 Sat by Pulse Oximetry: 100 (RA) Pulse Ox Interpretation: Normal Medical Decision Making Medical Decision Making: Time: 2309 A/P: 58 y/o male with a PMHx of ESRD, CHR with defibrillator and HTN presenting with nonspecific hematuria. -- Possible UTI vs. sequelae of Polycystic Kidney Disease vs. 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 Time: 102 CT RESULTS FINDINGS: The visualized lung bases are unremarkable. Unchanged scattered cysts of the unenhanced liver. Normal gallbladder and extrahepatic biliary system. Normal unenhanced spleen. Normal pancreas. Normal bilateral adrenal glands. Unchanged bilateral renal cysts. Few of them contains calcification/layering hyperdense material. The largest measures 8.6 cm on the left side. Enlarged right kidney. There is no right renal mass. There are no right renal calculi. There is no right hydronephrosis. Normal visualized right ureter. Enlarged left kidney. There is no left renal mass. There are no left renal calculi. There is no left hydronephrosis. Normal visualized left ureter. Normal visualized stomach. Normal small intestine. Diffuse diverticulosis of the colon. Mild thickening of the cecum. The appendix is visualized and appears normal. There is no demonstrated peritoneal fluid. Normal abdominal aorta. Normal inferior vena cava. Normal retroperitoneum. Normal urinary bladder. There is no pelvic mass lesion or lymphadenopathy. There is no pelvic fluid. Mild prostatomegaly, unchanged. Normal abdominal wall. Mild spondylosis. IMPRESSION: Polycystic kidneys, unchanged exam. Mild thickening of the cecum in the interim. Underdistention versus mild inflammatory pathology without perforation or abscess formation. Electronically signed on Feb 18, 2018 1:03:54 AM EST by: Catherine Hardin M.D., Certified by ABR, MSK, Neuroradiology [address] Marquez who recommends outpatient ABx and followup in office Will give one dose of IV levoquin Advised patient to followup as outpatient Very well appearing upon discharge __ Scribe Attestation: Documented by Josephine Smiley, acting as a scribe for Ray Lai MD. Provider Scribe Attestation: All medical record entries made by the Scribe were at my direction and personally dictated by me. I have reviewed the chart and agree that the record accurately reflects my personal performance of the history, physical exam, medical decision making, and the department course for this patient. I have also personally directed, reviewed, and agree with the discharge instructions and disposition. Disposition - Clinical Impression Clinical Impression: Urinary tract infection - Disposition Referrals: Tommy Marquez MD [Family Provider] - Dorys Rangel MD [Staff Provider] - Disposition: Routine/Home Disposition Time: 01:00 Condition: GOOD Prescriptions: Levofloxacin [Levaquin] 750 mg PO DAILY 10 Days #10 tablet Instructions: Urinary Tract Infection, Adult (DC) Forms: [facility] (Bur[place]ian) Print Language: FRISIAN
[2018-02-18 00:03] LABS: CALCIUM 9.1 mg/dL (8.4-10.2)
[2018-02-18 01:50] VITALS: RESP 19
[2018-02-18] MEDS ORDERED: levoFLOXacin 750 mg in D5W 750 MG/150 ML BAG IVPB STA (02:05)
[2018-02-18] MEDS ORDERED: levoFLOXacin 750 mg in D5W 750 MG/150 ML BAG IVPB ONE (02:05)
[2018-02-18 03:37] VITALS: O2SAT 100
[2018-02-18 03:52] VITALS: BP 110/66; PULSE 66; TEMP 97.2
[2018-02-18] MEDS ORDERED: levoFLOXacin 750 mg in D5W 750 MG/150 ML BAG IVPB SCH (09:00)
--- NOTE | 2018-02-18 11:45 | CT ---
Date of service: 02/17/2018 PROCEDURE: CT Abdomen and Pelvis without intravenous contrast HISTORY: ESRD, abd pain, hematuria COMPARISON: Abdomen and pelvis CT without contrast 09/05/2017. TECHNIQUE: Helical CT of the abdomen and pelvis was performed without oral or intravenous contrast as per referring physician request. Coronal and sagittal reformats were generated. Contrast dose: None Radiation dose: Total exam DLP = 354.79 mGy-cm. This CT exam was performed using one or more of the following dose reduction techniques: Automated exposure control, adjustment of the mA and/or kV according to patient size, and/or use of iterative reconstruction technique. FINDINGS: LOWER THORAX: Limited bibasilar atelectasis is appreciated. Tiny calcified granuloma again seen the right lower lobe base. LIVER: Scattered lucencies are unchanged throughout the liver in general, poorly characterized given lack of intravenous contrast. GALLBLADDER AND BILE DUCTS: Unremarkable. PANCREAS: Unremarkable. No gross lesion or ductal dilatation. SPLEEN: Unremarkable. ADRENALS: Unremarkable. No mass. KIDNEYS AND URETERS: Grossly enlarged kidneys are reiterated due to innumerable cysts. Parenchymal or cystic calcifications are scattered bilaterally once again. Likely hyperdense cysts are scattered amongst the lucent cysts versus solid nodules are normal parenchyma. VASCULATURE: Unremarkable. No aortic aneurysm. No aortic atherosclerotic calcification or mural plaque present. BOWEL: Prominent retained fecal material scattered throughout the colon, potentially indicative of constipation moderately. No bowel obstruction appreciable. Lack of contrast agents limits interpretation of the gastrointestinal tract. APPENDIX: Unremarkable. Normal appendix. PERITONEUM: Unremarkable. No free fluid. No free air. LYMPH NODES: Unremarkable. No enlarged lymph nodes. BLADDER: Unremarkable. REPRODUCTIVE: Enlarged prostate gland identified. BONES: Probable benign hemangioma reiterated L4 vertebral body with Schmorl's node at inferior margins of T11 vertebral body. OTHER FINDINGS: None. IMPRESSION: 1. No definite significant interval change in appearance of enlarged polycystic kidneys bilaterally including scattered calcifications and nonspecific hyperdensities representing either soft tissue or complex cysts. 2. No bowel obstruction, mesenteric edema, ascites or free intra peritoneal gas collection. Colonic diverticulosis reiterated without definite diverticulitis pattern. Moderate constipation question. 3. Preliminary report provided by [employer], 02/18/2018 1:03 a.m..
== END 2018-02-18 03:50 | disposition home or self-care (01) ==
LOC: H.ER 22:44
DX: N39.0 Urinary tract infection, site not specified (principal); I13.2 Hypertensive heart and chronic kidney disease with heart failure and with stage 5 chronic kidney disease, or end stage renal disease; Q61.3 Polycystic kidney, unspecified; Z95.0 Presence of cardiac pacemaker